=== PATIENT | female | born 1955 | race Caucasian/White ===

== ENCOUNTER 2020-07-25 12:00 | Outpatient (REF) | payer OTHER, SELFPAY ==
[2020-07-25 14:01] LABS: MANUAL DIFF FLAG NO
[2020-07-25 14:06] LABS: Basophils Percent Auto 0.2 % (0-2); Eosinophils Absolute Auto 0.3 X10*3/uL (0.0-0.4); Eosinophils Percent Auto 4.1 % (0-4); Hematocrit 38.2 % (37-47); Hemoglobin 12.4 g/dl (12.0-16.0); Imm Gran Abs Auto 0.02 X10*3/uL (0.00-0.03); Imm Gran Pct Auto 0.3 % (0.0-0.4); Lymphocytes Absolute Auto 1.4 X10*3/uL (1.2-4.9); Lymphocytes Percent Auto 23.5 % (20-40); Mean Corpuscular HGB Conc 32.5 g/dl (31.0-35.0); Mean Corpuscular Hemoglobin 29.1 pg (27.0-33.0); Mean Corpuscular Volume 89.7 fL (80-98); Mean Platelet Volume 9.6 fL (9.4-12.3); Monocytes Absolute Auto 0.4 X10*3/uL (0.1-1.2); Monocytes Percent Auto 6.4 % (2-11); Neutrophils Percent Auto 65.5 % (45-73); Platelet Count 232 X10*3/uL (160-400); Red Blood Count 4.26 X10*6/uL (4.20-5.50); Red Cell Distribution Width 13.3 % (11.0-16.0); White Blood Count 6.1 X10*3/uL (4.8-10.8)
[2020-07-25 14:46] LABS: Alanine Aminotransferase 20 U/L (0-31); Albumin Level 4.3 g/dL (3.5-5.0); Alkaline Phosphatase 60 U/L (39-117); Anion Gap 11 (12-20); Aspartate Amino Transferase 20 U/L (5-31); Bilirubin Total 0.4 mg/dL (0.0-1.0); Blood Urea Nitrogen 18 mg/dL (9-16); Carbon Dioxide 27 mmol/L (22-29); Chloride 107 mmol/L (96-108); Estimated Glomerular Filt Rate > 60; Glucose Random 103 mg/dL (60-115); Potassium 4.1 mmol/l (3.3-5.1); Sodium 141 mmol/L (135-145); Total Protein 6.2 g/dL (6.5-8.0)
== END 2020-07-25 12:01 | disposition home or self-care (01) ==
LOC: HO.HMGCLDS 12:00
PROVIDERS: PCP Internal Medicine; Visit Provider Internal Medicine
DX: E78.5 Hyperlipidemia, unspecified (principal); R10.9 Unspecified abdominal pain; R31.21 Asymptomatic microscopic hematuria; R30.0 Dysuria
CPT/HCPCS: 36415; 80053; 85025; 86141; 87086

== ENCOUNTER 2020-10-30 15:19 | Outpatient (REF) | payer OTHER, SELFPAY ==
--- NOTE | 2020-10-30 | US_ITS ---
EXAMINATION: US RETROPERITONEAL LIMITED (RENAL ONLY) CLINICAL INFORMATION: Renal stones. COMPARISON: Renal ultrasound 11/08/2019 and 12/12/2018. CT abdomen and pelvis 05/20/2018. TECHNIQUE: Real-time imaging of the kidneys. FINDINGS: RIGHT KIDNEY: 10.3 x 4.8 x 4.8 cm (SAG x AP x TRV). The kidney is normal in size, contour, and echogenicity. Renal cortical thickness is normal. No calculi or focal parenchymal lesions. No hydronephrosis. LEFT KIDNEY: 10.3 x 5.1 x 4.6 cm (SAG x AP x TRV). The kidney is normal in size, contour, and echogenicity. Renal cortical thickness is normal. No calculi or focal parenchymal lesions. No hydronephrosis. US/US renal BI IMPRESSION: Unremarkable renal ultrasound.
== END 2020-10-30 15:20 | disposition home or self-care (01) ==
LOC: HO.HMGCX 15:19
PROVIDERS: PCP Internal Medicine; Visit Provider Urology
DX: N20.0 Calculus of kidney (principal)
CPT/HCPCS: 76775

== ENCOUNTER 2020-11-08 07:11 | Outpatient (REF) | payer OTHER, SELFPAY ==
[2020-11-08 07:46] LABS: MANUAL DIFF FLAG NO
[2020-11-08 07:49] LABS: Basophils Percent Auto 0.2 % (0-2); Eosinophils Absolute Auto 0.3 X10*3/uL (0.0-0.4); Eosinophils Percent Auto 5.4 % (0-4); Hematocrit 37.8 % (37-47); Hemoglobin 12.7 g/dl (12.0-16.0); Imm Gran Abs Auto 0.01 X10*3/uL (0.00-0.03); Imm Gran Pct Auto 0.2 % (0.0-0.4); Lymphocytes Absolute Auto 1.5 X10*3/uL (1.2-4.9); Lymphocytes Percent Auto 30.5 % (20-40); Mean Corpuscular HGB Conc 33.6 g/dl (31.0-35.0); Mean Corpuscular Hemoglobin 29.7 pg (27.0-33.0); Mean Corpuscular Volume 88.3 fL (80-98); Mean Platelet Volume 9.1 fL (9.4-12.3); Monocytes Absolute Auto 0.5 X10*3/uL (0.1-1.2); Neutrophils Absolute Auto 2.7 X10*3/uL (2.0-8.3); Neutrophils Percent Auto 54.7 % (45-73); Platelet Count 213 X10*3/uL (160-400); Red Blood Count 4.28 X10*6/uL (4.20-5.50); Red Cell Distribution Width 12.8 % (11.0-16.0)
== END 2020-11-08 07:12 | disposition home or self-care (01) ==
LOC: HO.LAB 07:11
PROVIDERS: PCP Internal Medicine; Visit Provider Internal Medicine
DX: R10.9 Unspecified abdominal pain (principal); E78.2 Mixed hyperlipidemia; E03.9 Hypothyroidism, unspecified
CPT/HCPCS: 36415; 85025

== ENCOUNTER → 2020-11-19 15:57 | Outpatient (BNVA) | payer OTHER, SELFPAY | PROVIDERS: Visit Provider Urology | DX: Z76.89 Persons encountering health services in other specified circumstances (principal) ==

== ENCOUNTER → 2021-01-12 07:56 | Outpatient (REF) | payer OTHER, SELFPAY ==
--- NOTE | 2021-01-12 08:07 | CA_ITS ---
Acquisition Time: 2021-01-12 08:04:41 Total Exercise Time: 00:07:00 Test Indications: Chest Pain Medications: ATORVASTATIN LEVOTHYROXINE Protocol: AMANDA Max HR: 141 BPM 90% of Pred: 155 BPM Max BP: 142/064 mmHG Max Work Load: 8.5 METS Exercise stress test with exercise 7 min of Amanda protocol, with 1/10 left chest discomfort at baseline which did not change with exercise, without arrythmia during exercise, with isolated PVC in recovery, with normotensive response to exercise, without EKG changes meeting criteria for ischemia. Test reviewed with Dr Chandra. Referred By: Kristina Buckley Overread By: ALEX HE
== END ==
LOC: HO.CARD 07:56
PROVIDERS: Visit Provider Internal Medicine
DX: R07.9 Chest pain, unspecified (principal); E78.5 Hyperlipidemia, unspecified
CPT/HCPCS: 93016; 93017; 93018

== ENCOUNTER 2021-05-25 07:15 | Outpatient (REF) | payer OTHER, SELFPAY ==
[2021-05-25 11:21] LABS: MANUAL DIFF FLAG NO
[2021-05-25 11:28] LABS: Glucose Urine UA NEG (NEG); Leukocyte Esterase Urine TRACE (NEG); Nitrite Urine NEG (NEG); PH 5.5 (5.0-8.0); Specific Gravity - Urine 1.025 (1.005-1.025); Urine Blood 2+ (NEG); Urine Ketones NEG (NEG); Urine Protein NEG (NEG-TRACE)
[2021-05-25 11:36] LABS: Appearance Urine HAZY; Color Urine YELLOW
[2021-05-25 11:55] LABS: Eosinophils Absolute Auto 0.2 X10*3/uL (0.0-0.4); Eosinophils Percent Auto 4.5 % (0-4); Hematocrit 38.1 % (37-47); Hemoglobin 12.3 g/dl (12.0-16.0); Imm Gran Abs Auto 0.01 X10*3/uL (0.00-0.03); Imm Gran Pct Auto 0.2 % (0.0-0.4); Lymphocytes Absolute Auto 1.2 X10*3/uL (1.2-4.9); Lymphocytes Percent Auto 30.5 % (20-40); Mean Corpuscular HGB Conc 32.3 g/dl (31.0-35.0); Mean Corpuscular Hemoglobin 28.7 pg (27.0-33.0); Mean Corpuscular Volume 88.8 fL (80-98); Mean Platelet Volume 9.9 fL (9.4-12.3); Monocytes Absolute Auto 0.2 X10*3/uL (0.1-1.2); Neutrophils Absolute Auto 2.4 X10*3/uL (2.0-8.3); Neutrophils Percent Auto 58.8 % (45-73); Platelet Count 198 X10*3/uL (160-400); Red Blood Count 4.29 X10*6/uL (4.20-5.50)
[2021-05-25 11:56] LABS: Alanine Aminotransferase 14 U/L (0-31); Alkaline Phosphatase 58 U/L (39-117); Anion Gap 12 (12-20); Aspartate Amino Transferase 18 U/L (5-31); Bilirubin Total 0.5 mg/dL (0.0-1.0); Blood Urea Nitrogen 18 mg/dL (9-16); Carbon Dioxide 24 mmol/L (22-29); Chloride 110 mmol/L (96-108); Cholesterol 178 mg/dL; Estimated Glomerular Filt Rate 58; Glucose Fasting 114 mg/dL (60-99); HDL Cholesterol 55 mg/dL; LDL Cholesterol Calculated 108 mg/dl; Sodium 142 mmol/L (135-145); Total Protein 5.9 g/dL (6.5-8.0); Triglycerides 76 mg/dL
[2021-05-25 12:10] LABS: Amorphous Sediment Urine 2+ /LPF; Bacteria Urine 2+ /LPF; Renal Epithelial Cells Urine TRACE /LPF; Squamous Epithelial Cell Urine TRACE /LPF
[2021-05-25 12:17] LABS: TSH reflex Free T4 0.33 uIU/mL (0.32-4.0); Vitamin D 25-OH Total 20.9 ng/mL (>30)
== END 2021-05-25 07:16 | disposition home or self-care (01) ==
LOC: HO.HMGCLDS 07:15
PROVIDERS: PCP Internal Medicine; Visit Provider Internal Medicine
DX: Z00.00 Encounter for general adult medical examination without abnormal findings (principal); E03.9 Hypothyroidism, unspecified; E78.5 Hyperlipidemia, unspecified
CPT/HCPCS: 36415; 80053; 80061; 81001; 82306; 84443; 85025

== ENCOUNTER 2021-06-24 12:19 | Outpatient (REF) | payer OTHER, SELFPAY | END 2021-06-24 12:20 | disposition home or self-care (01) | LOC: HO.LNP 12:19 | PROVIDERS: Visit Provider Internal Medicine | DX: Z20.822 Contact with and (suspected) exposure to COVID-19 (principal); J06.9 Acute upper respiratory infection, unspecified | CPT/HCPCS: U0003; U0005 ==

== ENCOUNTER 2021-06-27 10:35 | Outpatient (REF) | payer OTHER, SELFPAY | END 2021-06-27 10:36 | disposition home or self-care (01) | LOC: HO.LNP 10:35 | PROVIDERS: Visit Provider Internal Medicine | DX: A08.4 Viral intestinal infection, unspecified (principal) | CPT/HCPCS: 87045; 87046 ==

== ENCOUNTER 2021-06-30 | Outpatient (REF) | payer OTHER, SELFPAY ==
[2021-07-01 11:44] LABS: Appearance Urine CLEAR; Color Urine YELLOW; Glucose Urine UA NEG (NEG); Leukocyte Esterase Urine NEG (NEG); Nitrite Urine NEG (NEG); Specific Gravity - Urine 1.015 (1.005-1.025); UACC Culture Trigger NO; Urine Blood 1+ (NEG); Urine Ketones NEG (NEG); Urine Protein NEG (NEG-TRACE)
[2021-07-01 12:17] LABS: Squamous Epithelial Cell Urine 1+ /LPF; WBC Urine 0 /HPF (0-4)
== END 2021-06-30 00:01 | disposition home or self-care (01) ==
LOC: HO.LNP
PROVIDERS: Visit Provider Internal Medicine
DX: N39.0 Urinary tract infection, site not specified (principal)
CPT/HCPCS: 81001

== ENCOUNTER 2021-07-14 11:50 | Outpatient (REF) | payer OTHER, SELFPAY ==
[2021-07-14 17:08] LABS: Urine Cytology See Pathology rpt
== END 2021-07-14 11:51 | disposition home or self-care (01) ==
LOC: HO.LNP 11:50
PROVIDERS: PCP Internal Medicine
DX: N39.0 Urinary tract infection, site not specified (principal); R31.21 Asymptomatic microscopic hematuria
CPT/HCPCS: 81002; 88112

== ENCOUNTER → 2021-08-19 13:58 | Outpatient (BNVA) | payer OTHER, SELFPAY | PROVIDERS: PCP Internal Medicine; Referring Provider Internal Medicine; Visit Provider Nurse Practitioner Family ==

== ENCOUNTER 2021-08-20 09:54 | Outpatient (REF) | payer OTHER, SELFPAY ==
[2021-08-20 10:51] LABS: Leukocytes Stool Qualitative NEGATIVE (NEGATIVE)
== END 2021-08-20 09:55 | disposition home or self-care (01) ==
LOC: HO.LNP 09:54
PROVIDERS: PCP Nurse Practitioner Family; Visit Provider Internal Medicine
DX: A08.4 Viral intestinal infection, unspecified (principal); K21.9 Gastro-esophageal reflux disease without esophagitis
CPT/HCPCS: 87338; 89055

== ENCOUNTER 2021-10-05 10:01 | Outpatient (REF) | payer OTHER, SELFPAY | END 2021-10-05 10:02 | disposition home or self-care (01) | LOC: HO.HMGCLDS 10:01 | PROVIDERS: PCP Internal Medicine; Visit Provider Internal Medicine | DX: Z20.822 Contact with and (suspected) exposure to COVID-19 (principal) | CPT/HCPCS: C9803; U0003; U0005 ==

== ENCOUNTER 2021-11-20 06:21 | Day surgery (SDC) | payer OTHER, SELFPAY ==
[2021-11-16 14:42] VITALS: BMI 26.7
--- NOTE | 2021-11-18 13:13 | HO.ANESPROP2 ---
Documented by User: Meron Hayes NP 11/19/21 10:35 HPI - Anesthesia Eval Consult details Narrative: 66yo F for Upper Endoscopy and Colonoscopy [facility] Active Problems Active Problems: All Active Problems (Updated 11/18/21 @ 09:49 by Kristina Buckley MD) Neck pain (Acute) UTI (urinary tract infection) (Acute) Viral gastroenteritis (Acute) Rectal bleed (Acute) Ear pain, left (Acute) Chest pain (Acute) Pruritus ani (Acute) Hypothyroid (Acute) Annual physical exam (Acute) Nephrolithiasis (Acute) Asymptomatic microscopic hematuria (Acute) Normal colonoscopy (Acute) Dysuria (Acute) Hyperlipidemia (Acute) Abdominal pain (Acute) Past Medical History Medical History Abdominal pain Annual physical exam Asymptomatic microscopic hematuria Chest pain Ear pain, left GERD (gastroesophageal reflux disease) Hyperlipidemia Hypothyroid Neck pain Normal colonoscopy Normal Pap smear Pruritus ani Rectal bleed UTI (urinary tract infection) Family History Family History Father No problems noted. Mother COPD (chronic obstructive pulmonary disease) HTN (hypertension) Surgical History Surgical History H/O colonoscopy History of esophagogastroduodenoscopy (EGD) Social History Social History Alcohol intake: current Alcohol intake frequency: a few times a month Patient Tobacco Use Status: Former Tobacco user Tobacco use type: Cigarette e-Cigarette/Vaping Use: Never Used Advance Directives: No (unknown-VM message left) Advance Directives Information Provided: Yes Advance Directives on File: No Meds Allergies Allergy/AdvReac Type Severity Reaction Status Date / Time No Known Allergies Allergy Verified 08/19/21 14:02 [No Known Allergies*] Home Medications Medication Instructions Recorded Confirmed Last Taken Type atorvastatin 20 mg tablet 20 mg PO DAILY 07/25/20 11/16/21 Unknown History lorazepam 0.5 mg tablet 0.5 mg PO BEDTIME PRN 07/25/20 11/16/21 Unknown History Exam Exam Date and Time: November 18, 2021 1313 Height,Weight and Vital Signs: Height 5 ft 9 in Weight 82.1 kg Pertinent Lab Results Pertinent Lab Results: Laboratory Tests 05/25/21 05/25/21 07:19 07:19 WBC 4.0 L Hgb 12.3 Hct 38.1 Plt Count 198 Sodium 142 Potassium 4.0 Chloride 110 H Carbon Dioxide 24 BUN 18 H Creatinine 0.96 Assessment and Plan Assessment Anesthesia Assessment: Chart Reviewed Documented by User: Petra Neal MD 11/20/21 07:42 PMF Past Medical History Medical History Abdominal pain Annual physical exam Asymptomatic microscopic hematuria Chest pain Ear pain, left GERD (gastroesophageal reflux disease) Hyperlipidemia Hypothyroid Neck pain Normal colonoscopy Normal Pap smear Pruritus ani Rectal bleed UTI (urinary tract infection) Family History Family History Father No problems noted. Mother COPD (chronic obstructive pulmonary disease) HTN (hypertension) Surgical History Surgical History H/O colonoscopy History of esophagogastroduodenoscopy (EGD) History of Problems with Anesthesia: No Social History Social History Alcohol intake: current Alcohol intake frequency: a few times a month Patient Tobacco Use Status: Former Tobacco user Tobacco use type: Cigarette e-Cigarette/Vaping Use: Never Used Advance Directives: No (unknown-VM message left) Advance Directives Information Provided: Yes Advance Directives on File: No Meds Allergies Allergy/AdvReac Type Severity Reaction Status Date / Time No Known Allergies Allergy Verified 08/19/21 14:02 [No Known Allergies*] Home Medications Medication Instructions Recorded Confirmed Last Taken Type atorvastatin 20 mg tablet 20 mg PO DAILY 07/25/20 11/16/21 Unknown History lorazepam 0.5 mg tablet 0.5 mg PO BEDTIME PRN 07/25/20 11/16/21 Unknown History Exam Airway Mallampati Class: II TM Dist: >3cm Neck ROM: Full Loose/Missing/Broken Teeth: No Heart: RRR Lungs: CTA Assessment and Plan Assessment Anesthesia Assessment: Anesthesia Plan Discussed Final Anesthetic Review History of Problems with Anesthesia: No NPO: Yes ASA Class: II Final Preanesthetic Review: Meds/Allgs Chart Reviewed, Consent Obtained/Reviewed and Anes Risks/Benef Reviewed Patient Risk: Low Procedure Risk: Intermediate Anesthetic Plan Anesthetic Plan: MAC: Disposition: Standard PACU
[2021-11-20 06:55] VITALS: BP 115/75; PULSE 71; RESP 18; TEMP 36.7; O2SAT 95
[2021-11-20] MEDS: Lactated Ringers 1,000 ML 100 ML IVCONT (07:09)
--- NOTE | 2021-11-20 07:32 | MHC.SHP ---
Pre-Procedural Eval Section A Date of Service: 11/20/21 The patient is an INPATIENT: No The History & Physical has been completed within 30 days and I have reviewed it.: No Section B Chief Complaint: Screening,gerd Details of Present Illness: Colon cancer screening, rectal bleeding, constipation, GERD, abdominal pain Relevant Family History (Specify if Yes): No Relevant Social History: Tobacco Use (Past smoker) Present Medications: see Short Stay Collaborative assessment Medical History: Significant History (Abdominal pain Annual physical exam Asymptomatic microscopic hematuria Chest pain Ear pain, left GERD (gastroesophageal reflux disease) Hyperlipidemia Hypothyroid Normal colonoscopy Normal Pap smear Pruritus ani Rectal bleed UTI (urinary tract infection)) History of Previous Operations: Relevant previous surgery/procedure and date(s) (History of EGD, history of colonoscopy) Allergies: Allergies Allergy/AdvReac Type Severity Reaction Status Date / Time No Known Allergies Allergy Verified 08/19/21 14:02 [No Known Allergies*] Review of Systems Sugical H&P ROS: Negative: Constitution, Cardiovascular and Respiratory and Yes, Specify: Gastrointestinal (heartburn, contipation) Exam Surgical H&P Exam: Normal: Heart, Normal: Lungs, Normal: Extremities and Normal: Abdomen Plan Diagnosis/Plan: Unchanged I have reviewed the history and physical and performed a pertinent physical examination on my patient. No changes have occurred unless specified.
--- NOTE | 2021-11-20 07:33 | PM.OP ---
Brief Operative Note Date of Service: 11/20/21 Pre-op diagnosis: Colon cancer screening, rectal bleeding, constipation, GERD, abdominal pain Post-op diagnosis: other (GERD, gastritis, gastric polyp) Procedure: FLEXIBLE TRANSORAL UPPER GASTROINTESTINAL ENDOSCOPY WITH BIOPSIES AND COLONOSCOPY TILL CECUM WITH BIOPSIES AND SNARE POLYPECTOMY UPPER ENDOSCOPY Consent: Indications for the procedure and potential complications of bleeding, perforation, reaction to medications and missed diagnosis were discussed with the patient and informed consent was obtained. Instrument: Olympus GIF H 190 mid size upper endoscope Monitoring: Vital signs and clinical assessment, continuous EKG monitoring, Pulse oximetry, Carbon Dioxide monitoring and blood pressure monitoring were done throughout the procedure. Procedure: The patient was placed in the left lateral decubitis position and pre-procedure medications were administered and a bite block was placed. The endoscope was inserted into the mouth and advanced under direct vision to the third part of duodenum. A careful inspection was made as the upper endoscope was withdrawn including a retroflexed examination of the proximal stomach; Findings and interventions are described below. Findings: Larynx: Normal Esophagus: GE junction at 36 cms. A single 2 cms healing erosion at GE junction. No Hansen's. Stomach: A 2-3 mm benign appearing polyp in the gastric body - biopsied. Mild gastric erythema. Biopsies were obtained. Grade 2 flap valve on retroflexed examination of the cardia. Duodenum: Normal bulb and descending duodenum Intervention: Biopsies as noted above COLONOSCOPY PROCEDURE NOTE Consent: Indications for the procedure and potential complications of bleeding, perforation, reaction to medications and missed diagnosis were discussed with the patient and informed consent was obtained. Instrument: Olympus PCF H 190 L variable stiffness pediatric colonoscope Monitoring: Vital signs and clinical assessment, intermittent blood pressure monitoring, continuous EKG monitoring, Pulse oximetry and Carbon Dioxide monitoring were done throughout the procedure. Colon withdrawl time was 16 minutes. Procedure: The patient was placed in the left lateral decubitis position and pre-procedure medications were administered. After a digital rectal examination of the ano-rectum, the video colonoscope was inserted into the rectum and advanced through the colon to the cecum. The colonoscope was slowly withdrawn in a retrograde panoramic fashion and the colon mucosa was carefully examined including a retroflexed view of the rectum. Findings and interventions are described below. Procedure Difficulty: Colon was long and tortuous and there was some loop formation - no manuvers were required Findings: Terminal Ileum: Not evaluated Cecum: Normal Ascending Colon: Normal Transverse Colon: Normal Descending Colon: Normal Sigmoid Colon: A 10 mm sessile polyp removed with a cold snare. Small amount of residual polyp removed with a cold bx. Moderate diverticulosis Rectum: Normal Ano-rectum: Large inflamed internal hemorrhoids and perianal skin tags Colon preparation: Excellent Impression and Post Procedure Diagnosis: Endoscopy Findings: ESOPHAGUS: GE junction at 36 cms. A single 2 cms healing erosion at GE junction. No Hansen's STOMACH: Gastritis, Gastric polyp Colonoscopy Findings: One medium sized polyp removed Moderate diverticulosis seen in the sigmoid colon Large inflamed internal hemorrhoids on retroflexed exam and perianal skin tags . Plan: Await pathology results Patient has an appointment on 12/04/21 in the GI Clinic with Tiana Harley FNP-BC . Repeat Colonoscopy interval based on path results - in 3 years if polyps are adenomatous and 10 years if polyps are hyperplastic. Above findings were reviewed with the patient and GERD, Gastric polyps, colon polyps and hemorrhoids handouts were given in the discharge area. Pt reported taking Omeprazole once a day and was advised to increase Omeprazole 20 mg to twice daily (30 min before breakfast and dinner) She was advised to use preparation H every night. If her symptoms persist, she can be prescribed hydrocortisone cream and referred to General surgery for band ligation or hemorrhoidectomy. Surgeon: Satnam Dumont MD Anesthesia: MAC (Dr Neal) Was an Supervisor Files used for this Procedure?: No Supervisor Files: Shayy Patterson Estimated blood loss (mL): 0 Pathology: other (A. gastric antrum bxs, R/O H. pylori B. gastric polyp C. sigmoid colon polyp) Condition: stable Disposition: PACU
--- NOTE | 2021-11-20 07:34 | P.OP_ITS ---
Operative Note Operative Note Date of Service: 11/20/21 Narrative: Pre-op diagnosis: Colon cancer screening, rectal bleeding, constipation, GERD, abdominal pain Post-op diagnosis:?other (GERD, gastritis, gastric polyp) Procedure: FLEXIBLE TRANSORAL UPPER GASTROINTESTINAL ENDOSCOPY WITH BIOPSIES AND COLONOSCOPY TILL CECUM WITH BIOPSIES AND SNARE POLYPECTOMY UPPER ENDOSCOPY Consent:?Indications for the procedure and potential complications of bleeding, perforation, reaction to medications and missed diagnosis were discussed with the patient and informed consent was obtained. Instrument:?Olympus GIF H 190 mid size upper endoscope Monitoring: Vital signs and clinical assessment, continuous EKG monitoring, Pulse oximetry, Carbon Dioxide monitoring and blood pressure monitoring were done throughout the procedure. Procedure:?The patient was placed in the left lateral decubitis position and pre-procedure medications were administered and a bite block was placed. The endoscope was inserted into the mouth and advanced under direct vision to the third part of duodenum. A careful inspection was made as the upper endoscope was withdrawn including a retroflexed examination of the proximal stomach; Findings and interventions are described below. Findings: Larynx:? Normal Esophagus:?GE junction at 36 cms.? A single 2 cms healing erosion at GE junction. No Hansen's. Stomach:?A 2-3 mm benign appearing polyp in the gastric body - biopsied.? Mild gastric erythema. Biopsies were obtained. Grade 2 flap valve on retroflexed examination of the cardia. Duodenum:?Normal bulb and descending duodenum Intervention:?Biopsies as noted above COLONOSCOPY PROCEDURE NOTE Consent:?Indications for the procedure and potential complications of bleeding, perforation, reaction to medications and missed diagnosis were discussed with the patient and informed consent was obtained. Instrument:?Olympus PCF H 190 L variable stiffness pediatric colonoscope Monitoring:?Vital signs and clinical assessment, intermittent blood pressure monitoring, continuous EKG monitoring, Pulse oximetry and Carbon Dioxide monitoring were done throughout the procedure. Colon withdrawl time was 16 minutes. Procedure:?The patient was placed in the left lateral decubitis position and pre-procedure medications were administered. After a digital rectal examination of the ano-rectum, the video colonoscope was inserted into the rectum and advanced through the colon to the cecum. The colonoscope was slowly withdrawn in a retrograde panoramic fashion and the colon mucosa was carefully examined including a retroflexed view of the rectum. Findings and interventions are described below. Procedure Difficulty:??Colon was long and tortuous and there was some loop formation - no manuvers were required Findings: Terminal Ileum: Not evaluated Cecum:? Normal Ascending Colon:??Normal Transverse Colon:??Normal Descending Colon:? Normal Sigmoid Colon:? A 10 mm sessile polyp removed with a cold snare. ? Small amount of residual polyp removed with a cold bx.? Moderate diverticulosis Rectum:??Normal Ano-rectum:??Large inflamed internal hemorrhoids and perianal skin tags Colon preparation: Excellent ? Impression and Post Procedure Diagnosis: Endoscopy Findings: ESOPHAGUS: GE junction at 36 cms.? A single 2 cms healing erosion at GE junction. No Hansen's STOMACH: Gastritis, Gastric polyp Colonoscopy Findings: One medium sized polyp removed Moderate diverticulosis seen in the sigmoid colon Large inflamed internal hemorrhoids on retroflexed exam and perianal skin tags . Plan: Await pathology results Patient has an appointment on 12/04/21 in the GI Clinic with ? Tiana Harley FNP-BC . Repeat Colonoscopy interval based on path results - in 3 years if polyps are adenomatous and 10 years if polyps are hyperplastic. Above findings were reviewed with the patient and GERD, Gastric polyps, colon polyps and hemorrhoids handouts were given in the discharge area. Pt reported taking Omeprazole once a day and was advised to increase Omeprazole 20 mg to twice daily (30 min before breakfast and dinner) She was advised to use preparation H every night.? If her symptoms persist, she can be prescribed hydrocortisone cream and referred to General surgery for band ligation or hemorrhoidectomy. Surgeon: Satnam Dumont MD Anesthesia:?MAC (Dr Neal) Was an Senior Fire Protection Engineer used for this Procedure?:?No Senior Fire Protection Engineer:?Shayy Patterson Estimated blood loss (mL):?0 Pathology:?other (A. gastric antrum bxs, R/O H. pylori? B. gastric polyp? C. sigmoid colon polyp) Condition:?stable Disposition:?PACU
[2021-11-20 08:38] VITALS: BP 121/70; PULSE 65; RESP 18; TEMP 36.3; O2SAT 100
[2021-11-20 08:53] VITALS: BP 120/81; PULSE 60; RESP 18; TEMP 36.3; O2SAT 98
== END 2021-11-20 09:20 | disposition home or self-care (01) ==
PROVIDERS: PCP Internal Medicine; Visit Provider Internal Medicine Gastroenterology
PROC: (CPT 45385; principal; 2021-11-20 07:30)
DX: Z12.11 Encounter for screening for malignant neoplasm of colon (principal); K63.5 Polyp of colon; K57.30 Diverticulosis of large intestine without perforation or abscess without bleeding; K64.8 Other hemorrhoids; K64.4 Residual hemorrhoidal skin tags; K59.00 Constipation, unspecified; K21.9 Gastro-esophageal reflux disease without esophagitis; K29.50 Unspecified chronic gastritis without bleeding; K31.7 Polyp of stomach and duodenum; Z79.899 Other long term (current) drug therapy
CPT/HCPCS: 45385; 45380; 43239; 88305; 88342

== ENCOUNTER 2021-11-26 07:36 | Outpatient (REF) | payer OTHER, SELFPAY ==
[2021-11-26 11:31] LABS: Hematocrit 37.7 % (37.0-47.0); Hemoglobin 12.3 g/dl (12.0-16.0); Mean Corpuscular HGB Conc 32.6 g/dl (31.0-35.0); Mean Corpuscular Hemoglobin 29.1 pg (27.0-33.0); Mean Corpuscular Volume 89.3 fL (80.0-98.0); Mean Platelet Volume 10.1 fL (9.4-12.3); Platelet Count 214 X10*3/uL (160-400); Red Blood Count 4.22 X10*6/uL (4.20-5.50); White Blood Count 4.4 X10*3/uL (4.8-10.8)
[2021-11-26 11:42] LABS: Estimated Average Glucose 108 mg/dL; Hemoglobin A1c % 5.4 %
[2021-11-26 12:01] LABS: Alanine Aminotransferase 15 U/L (0-31); Albumin Level 3.9 g/dL (3.5-5.0); Alkaline Phosphatase 64 U/L (39-117); Anion Gap 8 (12-20); Aspartate Amino Transferase 17 U/L (5-31); Bilirubin Total 0.5 mg/dL (0.0-1.0); Blood Urea Nitrogen 19 mg/dL (9-16); Calcium 9.1 mg/dL (8.4-10.2); Carbon Dioxide 29 mmol/L (22-29); Chloride 110 mmol/L (96-108); Estimated Glomerular Filt Rate > 60; Glucose Fasting 92 mg/dL (60-99); Potassium 4.1 mmol/L (3.3-5.1); Sodium 143 mmol/L (135-145); Total Protein 5.9 g/dL (6.5-8.0)
== END 2021-11-26 07:37 | disposition home or self-care (01) ==
LOC: HO.HMGCLDS 07:36
PROVIDERS: Visit Provider Internal Medicine
DX: Z00.00 Encounter for general adult medical examination without abnormal findings (principal); E03.9 Hypothyroidism, unspecified; E78.5 Hyperlipidemia, unspecified
CPT/HCPCS: 36415; 80053; 83036; 85027

== ENCOUNTER → 2021-12-01 13:23 | Outpatient (BNVA) | payer OTHER, SELFPAY | PROVIDERS: PCP Internal Medicine; Referring Provider Internal Medicine; Visit Provider Nurse Practitioner Family ==

== ENCOUNTER → 2022-03-01 12:50 | Outpatient (BNVA) | payer OTHER, SELFPAY | PROVIDERS: PCP Internal Medicine; Referring Provider Internal Medicine; Visit Provider Nurse Practitioner Family | DX: K21.9 Gastro-esophageal reflux disease without esophagitis (principal) ==

== ENCOUNTER 2023-01-12 09:12 | Outpatient (REF) | payer OTHER, SELFPAY ==
[2023-01-12 11:45] LABS: Appearance Urine Clear; Color Urine Yellow; Glucose Urine UA Negative (Negative); Leukocyte Esterase Urine Trace (Negative); Nitrite Urine Negative (Negative); UMIC TRIGGER UA YES; Urine Blood Moderate (2+) (Negative); Urine Ketones Negative (Negative); Urine Protein Negative (Neg-Trace)
[2023-01-12 11:52] LABS: MANUAL DIFF FLAG NO
[2023-01-12 12:00] LABS: Bacteria Urine None Seen (None Seen); Basophils Percent Auto 0.4 % (0-2); Eosinophils Absolute Auto 0.4 X10*3/uL (0.0-0.4); Eosinophils Percent Auto 8.1 % (0-4); Hematocrit 37.5 % (37.0-47.0); Hemoglobin 12.5 g/dl (12.0-16.0); Hyaline Casts Urine 0-2 /LPF (0-2); Imm Gran Abs Auto 0.02 X10*3/uL (0.00-0.03); Imm Gran Pct Auto 0.4 % (0.0-0.4); Lymphocytes Absolute Auto 1.4 X10*3/uL (1.2-4.9); Lymphocytes Percent Auto 30.8 % (20-40); Mean Corpuscular HGB Conc 33.3 g/dl (31.0-35.0); Mean Corpuscular Hemoglobin 29.6 pg (27.0-33.0); Mean Corpuscular Volume 88.9 fL (80.0-98.0); Mean Platelet Volume 9.7 fL (9.4-12.3); Monocytes Absolute Auto 0.4 X10*3/uL (0.1-1.2); Monocytes Percent Auto 8.5 % (2-11); Neutrophils Absolute Auto 2.3 x10*3/uL (2.0-8.3); Neutrophils Percent Auto 51.8 % (45-73); Platelet Count 221 X10*3/uL (160-400); RBC Urine 0-2 /HPF (0-2); Red Blood Count 4.22 X10*6/uL (4.20-5.50); Red Cell Distribution Width 13.4 % (11.0-16.0); Squamous Epithelial Cell Urine 0-2 /HPF (0-2); WBC Urine 0-5 /HPF (0-5); White Blood Count 4.5 X10*3/uL (4.8-10.8)
[2023-01-12 12:55] LABS: Alanine Aminotransferase 22 U/L (0-31); Albumin Level 3.8 g/dL (3.5-5.0); Alkaline Phosphatase 61 U/L (39-117); Anion Gap 10 (12-20); Aspartate Amino Transferase 21 U/L (5-31); Bilirubin Total 0.5 mg/dL (0.0-1.0); Blood Urea Nitrogen 20 mg/dL (9-16); Calcium 8.5 mg/dL (8.4-10.2); Carbon Dioxide 26 mmol/L (22-29); Chloride 111 mmol/L (96-108); Cholesterol 211 mg/dL; Estimated Glomerular Filt Rate > 60; Glucose Fasting 84 mg/dL (60-99); HDL Cholesterol 51 mg/dL; LDL Cholesterol Calculated 144 mg/dl; Potassium 4.2 mmol/L (3.3-5.1); Sodium 143 mmol/L (135-145); Total Protein 5.7 g/dL (6.5-8.0); Triglycerides 83 mg/dL
[2023-01-12 13:20] LABS: TSH reflex Free T4 0.31 uIU/mL (0.32-4.0); Vitamin D 25-OH Total 16.5 ng/mL (>30)
[2023-01-12 14:12] LABS: Free T4 (Free Thyroxine) 1.32 ng/dL (0.71-1.85)
== END 2023-01-12 09:13 | disposition home or self-care (01) ==
LOC: HO.HMGCLDS 09:12
PROVIDERS: PCP Internal Medicine; Visit Provider Internal Medicine
DX: Z00.00 Encounter for general adult medical examination without abnormal findings (principal); E03.9 Hypothyroidism, unspecified; E78.5 Hyperlipidemia, unspecified
CPT/HCPCS: 36415; 80053; 80061; 81001; 82306; 84439; 84443; 85025

== ENCOUNTER 2023-03-15 14:55 | Outpatient (REF) | payer MEDICARE, SELFPAY ==
--- NOTE | ~2023-03-15 | MM_ITS ---
EXAMINATION: BONE DENSITOMETRY CLINICAL INDICATION: Asymptomatic menopausal state. COMPARISON: None (current study represents initial baseline exam). TECHNIQUE: Using a Opbeat DXA System (software version: 13.1) manufactured by [employer], dual-energy x-ray absorptiometry was performed of the lumbar spine and left hip. The images are of good technical quality. Summary results are attached. FINDINGS: AP SPINE L1-L4: BMD 1.327 g/cm2, Z-score 2.4, T-score 1.2, normal. LEFT FEMUR, NECK: BMD 0.960 g/cm2, Z-score 0.7, T-score -0.6, normal. LEFT FEMUR, TOTAL: BMD 1.140 g/cm2, Z-score 2.0, T-score 1.0, normal. IDENTIFIED RISK FACTORS: Menopause. HISTORY OF FRACTURE: None listed. MEDICATIONS: Vitamin D. MM/XR DEXA axial skeleton IMPRESSION: 1. DIAGNOSIS: Normal bone density based on the lowest T-score value of -0.6 in the femoral neck applying World Health Organization criteria. 2. 10-YEAR FRACTURE RISK PREDICTION, FRAX: According to the guidelines, FRAX calculation should only be performed on patients in the osteopenia bone density category. Therefore, FRAX was not performed on this patient. 3. Treatment Recommendations: NOF guidelines recommend consideration for treatment in postmenopausal women and men age 50 and older presenting with the following: -A hip or vertebral (clinical or morphometric) fracture. -T-score less than or equal to -2.5 at the femoral neck or spine after appropriate evaluation to exclude secondary causes. -Low bone mass at the hip or spine and a 10-year fracture probability by FRAX of greater than or equal to 3% for hip fracture or greater than or equal to 20% for major osteoporotic fracture based on the [place] adapted WHO algorithm. 4. Other Recommendations: All treatment decisions require clinical judgment and consideration of individual patient factors, including patient preferences, comorbidities, previous drug use, risk factors not captured in the FRAX model (e.g. frailty, falls, vitamin D deficiency, increased bone turnover, interval significant decline in bone density) and possible under or overestimation of fracture risk by FRAX. FUTURE SCAN RECOMMENDATION: People with diagnosed cases of osteoporosis or at high risk for fracture should have regular bone mineral density tests. For patients eligible for Medicare, routine testing is allowed once every 2 years. The testing frequency can be increased to one year for patients who have rapidly progressing disease, those who are receiving or discontinuing medical therapy to restore bone mass, or have additional risk factors.
== END 2023-03-15 14:56 | disposition home or self-care (01) ==
LOC: HO.MAMMO 14:55
PROVIDERS: PCP Internal Medicine; Visit Provider Internal Medicine
DX: Z13.820 Encounter for screening for osteoporosis (principal); Z78.0 Asymptomatic menopausal state
CPT/HCPCS: 77080

== ENCOUNTER 2023-05-24 06:20 | Outpatient (REF) | payer MEDICARE, SELFPAY ==
[2023-05-24 11:22] LABS: MANUAL DIFF FLAG NO
[2023-05-24 11:31] LABS: Basophils Percent Auto 0.4 % (0-2); Eosinophils Absolute Auto 0.2 X10*3/uL (0.0-0.4); Eosinophils Percent Auto 4.8 % (0-4); Hematocrit 38.9 % (37.0-47.0); Hemoglobin 12.7 g/dl (12.0-16.0); Lymphocytes Absolute Auto 1.2 X10*3/uL (1.2-4.9); Lymphocytes Percent Auto 24.5 % (20-40); Mean Corpuscular HGB Conc 32.6 g/dl (31.0-35.0); Mean Corpuscular Hemoglobin 29.5 pg (27.0-33.0); Mean Corpuscular Volume 90.3 fL (80.0-98.0); Mean Platelet Volume 10.1 fL (9.4-12.3); Monocytes Absolute Auto 0.4 X10*3/uL (0.1-1.2); Monocytes Percent Auto 8.6 % (2-11); Neutrophils Absolute Auto 2.9 x10*3/uL (2.0-8.3); Neutrophils Percent Auto 61.7 % (45-73); Platelet Count 207 X10*3/uL (160-400); Red Blood Count 4.31 X10*6/uL (4.20-5.50); Red Cell Distribution Width 13.1 % (11.0-16.0); White Blood Count 4.8 X10*3/uL (4.8-10.8)
[2023-05-24 12:39] LABS: Alanine Aminotransferase 18 U/L (0-31); Albumin Level 3.9 g/dL (3.5-5.0); Alkaline Phosphatase 52 U/L (39-117); Anion Gap 14 (12-20); Aspartate Amino Transferase 18 U/L (5-31); Bilirubin Total 0.4 mg/dL (0.0-1.0); Blood Urea Nitrogen 21 mg/dL (9-16); Calcium 9.1 mg/dL (8.4-10.2); Carbon Dioxide 22 mmol/L (22-29); Chloride 111 mmol/L (96-108); Estimated Glomerular Filt Rate > 60; Glucose Fasting 73 mg/dL (60-99); Potassium 3.8 mmol/L (3.3-5.1); Sodium 143 mmol/L (135-145); Total Protein 6.3 g/dL (6.5-8.0)
[2023-05-24 12:57] LABS: TSH reflex Free T4 0.47 uIU/mL (0.32-4.0)
[2023-05-24 14:28] LABS: Leukocytes Stool Qualitative NEGATIVE (NEGATIVE)
[2023-05-25 09:15] LABS: Adenovirus F 40/41 Not Detected (Not Detect.); Astrovirus Not Detected (Not Detect.); Campylobacter Not Detected (Not Detect.); Cryptosporidium Not Detected (Not Detect.); Cyclospora cayetanensis Not Detected (Not Detect.); E. coli EAEC Not Detected (Not Detect.); E. coli EPEC Detected (Not Detect.); E. coli ETEC Not Detected (Not Detect.); E. coli STEC Not Detected (Not Detect.); Entamoeba histolytica Not Detected (Not Detect.); Giardia lamblia Not Detected (Not Detect.); Norovirus GI/GII Not Detected (Not Detect.); Plesiomonas shigelloides Not Detected (Not Detect.); Rotavirus A Not Detected (Not Detect.); Salmonella Not Detected (Not Detect.); Sapovirus Not Detected (Not Detect.); Shigella sp./EIEC Not Detected (Not Detect.); Vibrio Not Detected (Not Detect.); Vibrio Cholerae Not Detected (Not Detect.); Yersinia enterocolitica Not Detected (Not Detect.)
== END 2023-05-24 06:21 | disposition home or self-care (01) ==
LOC: HO.HMGCLDS 06:20
PROVIDERS: PCP Internal Medicine; Visit Provider Internal Medicine
DX: R19.7 Diarrhea, unspecified (principal); K21.9 Gastro-esophageal reflux disease without esophagitis
CPT/HCPCS: 80053; 84443; 85025; 87338; 87507; 89055

== ENCOUNTER 2023-07-13 07:05 | Outpatient (REF) | payer MEDICARE, SELFPAY ==
[2023-07-13 13:10] LABS: Cholesterol 195 mg/dL (<200); HDL Cholesterol 57 mg/dL (>40); LDL Cholesterol Calculated 120 mg/dL (<100); Triglycerides 94 mg/dL (<150)
[2023-07-13 13:15] LABS: TSH reflex Free T4 0.43 uIU/mL (0.32-4.0); Vitamin D 25-OH Total 51.7 ng/mL (>30)
== END 2023-07-13 07:06 | disposition home or self-care (01) ==
LOC: HO.HMGCLDS 07:05
PROVIDERS: PCP Internal Medicine; Visit Provider Internal Medicine
DX: E03.9 Hypothyroidism, unspecified (principal); E55.9 Vitamin D deficiency, unspecified; E78.5 Hyperlipidemia, unspecified
CPT/HCPCS: 36415; 80061; 82306; 84443

== ENCOUNTER 2023-07-19 10:52 | Outpatient (AMB) | payer MEDICARE, SELFPAY ==
[2023-07-19 10:54] VITALS: BP 114/66; PULSE 62; O2SAT 96; BMI 25.4
--- NOTE | 2023-07-19 10:54 | MHC.PC.OV ---
Vital Signs 07/19/23 10:54 Height 5 ft 8 in Weight 167 lb BMI 25.4 BP 114/66 Blood Pressure Location Rt brachial Position Sitting Pulse 62 Pulse Source Pulse Oximeter Pulse Oximetry (%) 96 Oxygen Delivery Method Room Air Intake Visit Reasons: 6 month follow up Hyperlipidemia Intake Note: Pt is here today for 6 months follow up visit. Allergies atorvastatin Adverse Reaction (Intermediate, Verified 07/19/23 10:56) joint aches Medication List - Last Reconciled 07/19/23 by Kristina Buckley MD cholecalciferol (vitamin D3) 50 mcg PO DAILY docusate sodium 100 mg PO BEDTIME famotidine (Pepcid) 20 mg PO BEDTIME hydrocortisone 2.5% (Proctosol HC) 1 appl [place] BID-QID PRN levocetirizine 5 mg PO DAILY levothyroxine 88 mcg PO DAILY lorazepam 0.5 mg PO BEDTIME PRN methylcellulose (laxative) (Citrucel) 500 mg PO DAILY omeprazole 20 mg PO BID rosuvastatin (Crestor) 5 mg PO DAILY sucralfate (Carafate) 10 mL PO BID PRN 30 days Tobacco use date assessed: 07/19/23 Fall risk assessment: No Falls in past year Last assessed Fall Risk: 07/19/23 Dental Screening Dental Screen Date: 07/19/23 Did you have a dental visit in the last 12 months?: Yes Did you have a dental problem in the last 6 months where you did not have access to dental care?: No Was dental information given to patient?: Patient has dentist HPI 6 month follow up Hyperlipidemia HPI Details Pt presents for f/u hyperlipidemia and hypothyroidism, stable on current medications. PFSH Medical History Otalgia of left ear Sore throat Internal hemorrhoid Tubular adenoma Hx of mammogram Neck pain Chest pain Pruritus ani Annual physical exam Normal Pap smear Asymptomatic microscopic hematuria Hyperlipidemia Hypothyroid GERD (gastroesophageal reflux disease) Surgical History H/O colonoscopy History of esophagogastroduodenoscopy (EGD) Family History Father No problems noted. Mother COPD (chronic obstructive pulmonary disease) HTN (hypertension) Social History Housing: House Alcohol intake: current Alcohol intake frequency: a few times a month Patient Tobacco Use Status: Former Tobacco user Tobacco use type: Cigarette e-Cigarette/Vaping Use: Never Used Current occupational status: employed Cognitive needs: No Hearing needs: No Vision needs: Yes Questionnaire Thrive Questionnaire Date Thrive assessed: 01/20/23 CRISTINA-7 AMB Questionnaire CRISTINA-7 Date CRISTINA - 7 assessed: 01/20/23 Source: Developed by Drs. Brandon Lanza, Mary Baig, Sergo Aquino and colleagues, with an educational [place] from [employer]. Review of Systems Const All systems reviewed & are unremarkable except as noted in HPI and below Reports no additional complaints Eyes Reports no additional complaints ENT Reports no additional complaints Card Reports no additional complaints Resp Reports no additional complaints GI Reports no additional complaints Reports no additional complaints Physical exam (Primary Care) Vital Signs: Last Vital Signs Pulse 62 07/19/23 10:54 BP 114/66 07/19/23 10:54 Pulse Ox 96 07/19/23 10:54 Oxygen Delivery Method Room Air 07/19/23 10:54 BMI result Body Mass Index 25.4 Tobacco/Smoking Status: Tobacco use Status Tobacco use date assessed 07/19/23 07/19/23 11:01 Patient Tobacco Use Status Former Tobacco user 07/19/23 11:01 Tobacco use type Cigarette 07/19/23 11:01 e-Cigarette/Vaping Use Never Used 07/19/23 11:01 Thrive Assessment: Date of Thrive Assessment Date Thrive assessed 01/20/23 07/19/23 11:01 Const General: no acute distress Neck Neck: Yes no lymphadenopathy and Yes supple Resp Effort & Inspection: normal respiratory effort Auscultation: clear to auscultation bilaterally Cardio Rhythm: regular rhythm Heart sounds: S1 normal heart sound present and S2 normal heart sound present GI Inspection: Yes normal to inspection Palpation (GI): Soft to palpation Auscultation: normal bowel sounds Assessment and Plan Assessment & Plan (1) Hypothyroid: Code(s): E03.9 - Hypothyroidism, unspecified Plan: Continue levothyroxine (2) Hyperlipidemia: Comment: Continue statin Code(s): E78.5 - Hyperlipidemia, unspecified Plan: Continue Crestor, return for physical in January with a fasting labs before Orders: Orders Comprehensive [place]. Panel Fast 7 Months E03.9 - Hypothyroidism, unspecified, E78.5 - Hyperlipidemia, unspecified Lipid Panel 7 Months E03.9 - Hypothyroidism, unspecified, E78.5 - Hyperlipidemia, unspecified TSH reflex Free T4 7 Months E03.9 - Hypothyroidism, unspecified, E78.5 - Hyperlipidemia, unspecified Complete Blood Count Auto Diff 7 Months E03.9 - Hypothyroidism, unspecified, E78.5 - Hyperlipidemia, unspecified Medications: Refilled omeprazole 20 mg PO BID 90 caps 3RF Discontinued sucralfate (Carafate) Discontinued Reason: Doctor's Order 10 mL PO BID 30 days PRN 600 mL 0RF stomch pain famotidine (Pepcid) Discontinued Reason: Doctor's Order 20 mg PO BEDTIME 90 tabs 2RF K21.9 - Gastro-esophageal reflux disease without esophagitis Coding Level of Care Code Est Pt Level 3 (21416) Diagnoses Hypothyroid E03. Hyperlipidemia E78.5
== END 2023-07-19 11:39 | disposition home or self-care (01) ==
PROVIDERS: Visit Provider Internal Medicine
DX: E03.9 Hypothyroidism, unspecified (principal); E78.5 Hyperlipidemia, unspecified
CPT/HCPCS: 99213

== ENCOUNTER 2023-11-11 12:11 | Outpatient (AMB) | payer MEDICARE, SELFPAY ==
[2023-11-11 12:19] VITALS: BP 110/70; PULSE 74; O2SAT 99; BMI 25.6
--- NOTE | 2023-11-11 12:19 | MHC.PC.OV ---
Vital Signs 11/11/23 12:19 Height 5 ft 8 in Weight 168 lb 8 oz BMI 25.6 BP 110/70 Blood Pressure Location Rt brachial Position Sitting Pulse 74 Pulse Source Pulse Oximeter Pulse Oximetry (%) 99 Oxygen Delivery Method Room Air Intake Visit Reasons: Dizziness on and off Intake Note: pt is here for dizziness off and on since pt says she has nausea as well no diarrhea but she goes more often then normal Allergies atorvastatin Adverse Reaction (Intermediate, Verified 11/11/23 12:22) joint aches Medication List - Last Reconciled 11/11/23 by Kristina Buckley MD cholecalciferol (vitamin D3) 50 mcg PO DAILY levothyroxine 88 mcg PO DAILY lorazepam 0.5 mg PO BEDTIME PRN omeprazole 20 mg PO BID rosuvastatin (Crestor) 5 mg PO DAILY Tobacco use date assessed: 11/11/23 Fall risk assessment: No Falls in past year Last assessed Fall Risk: 11/11/23 Dental Screening Dental Screen Date: 11/11/23 Did you have a dental visit in the last 12 months?: Yes Did you have a dental problem in the last 6 months where you did not have access to dental care?: No Was dental information given to patient?: Patient has dentist HPI Dizziness on and off HPI Details Pt had an episode of positional vertigo 2 days ago with nausea, no vomiting. Patient is feeling better but still has slight headache. She denies change in balance, weakness or numbness in extremities,fever chills abdominal pain, change in bowel habits. PFSH Medical History Otalgia of left ear Sore throat Internal hemorrhoid Tubular adenoma Hx of mammogram Neck pain Chest pain Pruritus ani Annual physical exam Normal Pap smear Asymptomatic microscopic hematuria Hyperlipidemia Hypothyroid GERD (gastroesophageal reflux disease) Surgical History H/O colonoscopy History of esophagogastroduodenoscopy (EGD) Family History Father No problems noted. Mother COPD (chronic obstructive pulmonary disease) HTN (hypertension) Social History Housing: House Alcohol intake: current Alcohol intake frequency: a few times a month Patient Tobacco Use Status: Former Tobacco user Tobacco use type: Cigarette e-Cigarette/Vaping Use: Never Used Current occupational status: employed Cognitive needs: No Hearing needs: No Vision needs: Yes Questionnaire PHQ-9 Over the last 2 weeks, how often have you been bothered by any of the following problems? 1. Little interest or pleasure in doing things: not at all 2. Feeling down, depressed, or hopeless: not at all 3. Trouble falling or staying asleep, or sleeping too much: not at all 4. Feeling tired or having little energy: not at all 5. Poor appetite or overeating: not at all 6. Feeling bad about yourself - or that you are a failure or have let yourself or your family down: not at all 7. Trouble concentrating on things, such as reading the newspaper or watching television: not at all 8. Moving or speaking so slowly that other people could have noticed. Or the opposite - being so fidgety or restless that you have been moving around a lot more than usual: not at all 9. Thoughts that you would be better off or of hurting yourself in some way: not at all Total score: 0 Depression Screening Interpretation: Negative Depression Screening Done: Yes Source: Developed by Drs. Brandon Lanza, Mary Baig, Sergo Aquino and colleagues, with an educational orlando from [employer]. Thrive Questionnaire Date Thrive assessed: 11/11/23 I am a: Patient What is your living situation today?: I have a steady place to live Within the past 12 months, did the food you bought not last and you didn't have the money to get more?: Never true Within the past 12 months, did you worry whether your food would run out before you got money to buy more?: Never true Do you have trouble paying for medicines?: No Do you have trouble getting transportation to medical appointments?: No Do you have trouble paying your heating and electricity bill?: No Do you have trouble taking care of your child, family member or friend?: No Do you have trouble with day-to-day activities such as bathing, preparing meals, shopping, managing finances, etc.?: No Are you currently unemployed and looking for a job?: No Are you interested in more education?: No Please select the resources that you would like help with: None Currently or been in a relationship where the following occur: no concerns reported THRIVE Score: 0 CRISTINA-7 AMB Questionnaire CRISTINA-7 Date CRISTINA - 7 assessed: 11/11/23 Feeling nervous, anxious, or on edge: 0 = Not at all Not being able to stop or control worryin = Not at all Worrying too much about different things: 0 = Not at all Trouble relaxin = Not at all Being so restless that it is hard to sit still: 0 = Not at all Becoming easily annoyed or irritable: 0 = Not at all Feeling afraid as if something awful might happen: 0 = Not at all Total CRISTINA-7 score (0-4 normal; 5-9 mild; 10-14 moderate; 15-21 severe): 0 Source: Developed by Drs. Brandon Lanza, Mary Baig, Sergo Aquino and colleagues, with an educational orlando from [employer]. Review of Systems Const All systems reviewed & are unremarkable except as noted in HPI and below Reports no additional complaints Eyes Reports no additional complaints ENT Reports no additional complaints Card Reports no additional complaints Resp Reports no additional complaints GI Reports no additional complaints Reports no additional complaints Physical exam (Primary Care) Vital Signs: Last Vital Signs Pulse 74 11/11/23 12:19 BP 110/70 11/11/23 12:19 Pulse Ox 99 11/11/23 12:19 Oxygen Delivery Method Room Air 11/11/23 12:19 BMI result Body Mass Index 25.6 Tobacco/Smoking Status: Tobacco use Status Tobacco use date assessed 11/11/23 11/11/23 12:24 Patient Tobacco Use Status Former Tobacco user 11/11/23 12:24 Tobacco use type Cigarette 11/11/23 12:24 e-Cigarette/Vaping Use Never Used 11/11/23 12:24 Depression Screening Interpretation: Negative Thrive Assessment: Date of Thrive Assessment Date Thrive assessed 01/20/23 11/11/23 12:24 Currently or been in a relationship where the following occur: no concerns reported Const General: no acute distress HENMT Head: Yes normal to inspection Ears: hearing grossly normal bilaterally General nose exam: Normal external nose present Face and sinus: Yes normal facial exam Mouth: Normal oral and palatal mucosa present Throat: Yes posterior oropharynx normal Eyes General: appearance normal, both eyes and all related structures Neck Neck: Yes no lymphadenopathy and Yes supple Resp Effort & Inspection: normal respiratory effort Auscultation: clear to auscultation bilaterally Cardio Rhythm: regular rhythm Heart sounds: S1 normal heart sound present and S2 normal heart sound present GI Inspection: Yes normal to inspection Palpation (GI): Soft to palpation Percussion: Yes normal to percussion Auscultation: normal bowel sounds Neuro Cranial nerves: Yes CN's II-XII intact bilaterally Gait exam (Neuro): Normal gait present Romberg Test: Negative Assessment and Plan Assessment & Plan (1) Benign positional vertigo: Code(s): H81.10 - Benign paroxysmal vertigo, unspecified ear Plan: Resolved Coding Level of Care Code Est Pt Level 3 (71509) Diagnoses Benign positional vertigo H81.10
== END 2023-11-11 13:24 | disposition home or self-care (01) ==
PROVIDERS: PCP Internal Medicine; Visit Provider Internal Medicine
DX: H81.10 Benign paroxysmal vertigo, unspecified ear (principal)
CPT/HCPCS: 99213

== ENCOUNTER 2024-01-17 07:05 | Outpatient (REF) | payer MEDICARE, SELFPAY ==
[2024-01-17 11:39] LABS: MANUAL DIFF FLAG NO
[2024-01-17 11:46] LABS: Basophils Percent Auto 0.2 % (0-2); Eosinophils Absolute Auto 0.3 X10*3/uL (0.0-0.4); Eosinophils Percent Auto 6.9 % (0-4); Hematocrit 39.1 % (37.0-47.0); Imm Gran Abs Auto 0.01 X10*3/uL (0.00-0.03); Imm Gran Pct Auto 0.2 % (0.0-0.4); Lymphocytes Absolute Auto 1.3 X10*3/uL (1.2-4.9); Lymphocytes Percent Auto 28.7 % (20-40); Mean Corpuscular HGB Conc 33.2 g/dl (31.0-35.0); Mean Corpuscular Hemoglobin 30.1 pg (27.0-33.0); Mean Corpuscular Volume 90.5 fL (80.0-98.0); Mean Platelet Volume 9.7 fL (9.4-12.3); Monocytes Absolute Auto 0.3 X10*3/uL (0.1-1.2); Monocytes Percent Auto 6.2 % (2-11); Neutrophils Absolute Auto 2.6 x10*3/uL (2.0-8.3); Neutrophils Percent Auto 57.8 % (45-73); Platelet Count 197 X10*3/uL (160-400); Red Blood Count 4.32 X10*6/uL (4.20-5.50); Red Cell Distribution Width 13.2 % (11.0-16.0); White Blood Count 4.5 X10*3/uL (4.8-10.8)
[2024-01-17 13:04] LABS: Alanine Aminotransferase 17 U/L (0-31); Albumin Level 3.9 g/dL (3.5-5.0); Alkaline Phosphatase 50 U/L (39-117); Anion Gap 11 (12-20); Aspartate Amino Transferase 21 U/L (5-31); Bilirubin Total 0.4 mg/dL (0.0-1.0); Blood Urea Nitrogen 19 mg/dL (9-16); Calcium 9.1 mg/dL (8.4-10.2); Carbon Dioxide 28 mmol/L (22-29); Chloride 109 mmol/L (96-108); Cholesterol 172 mg/dL (<200); Estimated Glomerular Filt Rate 59; Glucose Fasting 103 mg/dL (60-99); HDL Cholesterol 59 mg/dL (>40); LDL Cholesterol Calculated 98 mg/dL (<100); Potassium 3.9 mmol/L (3.3-5.1); Sodium 144 mmol/L (135-145); Triglycerides 76 mg/dL (<150)
[2024-01-17 13:25] LABS: TSH reflex Free T4 0.21 uIU/mL (0.32-4.0)
[2024-01-17 14:06] LABS: Free T4 (Free Thyroxine) 1.15 ng/dL (0.71-1.85)
== END 2024-01-17 07:06 | disposition home or self-care (01) ==
LOC: HO.HMGCLDS 07:05
PROVIDERS: PCP Internal Medicine; Visit Provider Internal Medicine
DX: E03.9 Hypothyroidism, unspecified (principal); E78.5 Hyperlipidemia, unspecified
CPT/HCPCS: 36415; 80053; 80061; 84439; 84443; 85025

== ENCOUNTER 2024-01-23 12:51 | Outpatient (AMB) | payer MEDICARE, SELFPAY ==
[2024-01-23 12:54] VITALS: BP 130/78; PULSE 64; O2SAT 99; BMI 25.8
--- NOTE | 2024-01-23 12:54 | A.OFFPC_ITS ---
Vital Signs 01/23/24 12:54 Height 5 ft 8 in Weight 170 lb BMI 25.8 BP 130/78 Blood Pressure Location Lt brachial Position Sitting Pulse 64 Pulse Source Pulse Oximeter Pulse Oximetry (%) 99 Oxygen Delivery Method Room Air Intake Visit Reasons: Annual PE Intake Note: Pt is here today for her PE Allergies atorvastatin Adverse Reaction (Intermediate, Verified 01/23/24 12:56) joint aches Medication List - Last Reconciled 01/23/24 by Kristina Buckley MD cholecalciferol (vitamin D3) 50 mcg PO DAILY levothyroxine 88 mcg PO DAILY lorazepam 0.5 mg PO BEDTIME PRN omeprazole 20 mg PO BID rosuvastatin (Crestor) 5 mg PO DAILY Tobacco use date assessed: 01/23/24 Fall risk assessment: 1 Fall in past year Last assessed Fall Risk: 01/23/24 Dental Screening Dental Screen Date: 01/23/24 Did you have a dental visit in the last 12 months?: Yes Did you have a dental problem in the last 6 months where you did not have access to dental care?: No Was dental information given to patient?: Patient has dentist HPI Annual PE HPI Details Patient presents for physical. She tripped and fell last night hitting the left side of her face. Patient denies loss of consciousness. headache nausea vomiting change in vision. [facility] Medical History Otalgia of left ear Sore throat Internal hemorrhoid Tubular adenoma Hx of mammogram Neck pain Chest pain Pruritus ani Annual physical exam Normal Pap smear Asymptomatic microscopic hematuria Hyperlipidemia Hypothyroid GERD (gastroesophageal reflux disease) Surgical History H/O colonoscopy History of esophagogastroduodenoscopy (EGD) Family History Father No problems noted. Mother COPD (chronic obstructive pulmonary disease) HTN (hypertension) Social History Housing: House Alcohol intake: current Alcohol intake frequency: a few times a month Patient Tobacco Use Status: Former Tobacco user Tobacco use type: Cigarette e-Cigarette/Vaping Use: Never Used Current occupational status: employed Cognitive needs: No Hearing needs: No Vision needs: Yes Questionnaire Thrive Questionnaire Date Thrive assessed: 11/11/23 AUDIT C Alcohol Use Questionnaire (AUDIT-C) 1. How often do you have a drink containing alcohol?: Never Total Score: 0 CRISTINA-7 AMB Questionnaire CRISTINA-7 Date CRISTINA - 7 assessed: 11/11/23 Source: Developed by Drs. Brandon Lanza, Mary Baig, Sergo Aquino and colleagues, with an educational orlando from [employer]. Review of Systems Const All systems reviewed & are unremarkable except as noted in HPI and below Reports no additional complaints Eyes Reports no additional complaints ENT Reports no additional complaints Card Reports no additional complaints Resp Reports no additional complaints GI Reports no additional complaints Reports no additional complaints Physical exam (Primary Care) Vital Signs: Last Vital Signs Pulse 64 01/23/24 12:54 BP 130/78 01/23/24 12:54 Pulse Ox 99 01/23/24 12:54 Oxygen Delivery Method Room Air 01/23/24 12:54 BMI result Body Mass Index 25.8 Tobacco/Smoking Status: Tobacco use Status Tobacco use date assessed 01/23/24 01/23/24 12:58 Patient Tobacco Use Status Former Tobacco user 01/23/24 12:58 Tobacco use type Cigarette 01/23/24 12:58 e-Cigarette/Vaping Use Never Used 01/23/24 12:58 Thrive Assessment: Date of Thrive Assessment Date Thrive assessed 11/11/23 01/23/24 12:58 Const General: no acute distress HENMT Other: Multiple ecchymoses and abrasion of left forehead, temporal, and periorbital region, soft tissue swelling of nose and tenderness to palpation Ears: hearing grossly normal bilaterally Face and sinus: Yes normal facial exam Mouth: Normal oral and palatal mucosa present Eyes General: appearance normal, both eyes and all related structures Neck Neck: Yes no lymphadenopathy and Yes supple Resp Effort & Inspection: normal respiratory effort Auscultation: clear to auscultation bilaterally Cardio Rhythm: regular rhythm Heart sounds: S1 normal heart sound present and S2 normal heart sound present GI Inspection: Yes normal to inspection Palpation (GI): Soft to palpation Percussion: Yes normal to percussion Auscultation: normal bowel sounds Assessment and Plan Assessment & Plan (1) Dysplastic nevi: Code(s): D23.9 - Other benign neoplasm of skin, unspecified Plan: Referred to dermatology (2) Smoker: Comment: 1 PPD x 20 yrs, quit 2019 Code(s): F17.200 - Nicotine dependence, unspecified, uncomplicated Plan: Referred to lung cancer screening program (3) Hypothyroid: Code(s): E03.9 - Hypothyroidism, unspecified Plan: Continue Levothroxine (4) Blunt trauma of face: Code(s): S09.93XA - Unspecified injury of face, initial encounter Plan: Check CT of the face and brain after trauma (5) Head trauma: Code(s): S09.90XA - Unspecified injury of head, initial encounter (6) Annual physical exam: Code(s): Z00.00 - Encounter for general adult medical examination without abnormal findings Plan: Well-balanced diet regular physical activity discussed with the patient she is up-to-date with mammogram colonoscopy. Fall prevention discussed with the patient Orders: Orders TSH reflex Free T4 2 Months E03.9 - Hypothyroidism, unspecified CT head/brain wo IV con Today S09.90XA - Unspecified injury of head, initial encounter, S09.93XA - Unspecified injury of face, initial encounter CT facial bones wo IV con Today S09.90XA - Unspecified injury of head, initial encounter, S09.93XA - Unspecified injury of face, initial encounter Referrals Dermatology Referral D23.9 - Other benign neoplasm of skin, unspecified Thoracic Surgery Referral F17.200 - Nicotine dependence, unspecified, uncomplicated Coding Level of Care Code Est Pt Prev Care >65y(44654) Diagnoses Dysplastic nevi D23.9 Smoker F17.200 Hypothyroid E03.9 Blunt trauma of face S09.93XA Head trauma S09.90XA Annual physical exam Z00.00
== END 2024-01-23 15:34 | disposition home or self-care (01) ==
PROVIDERS: Visit Provider Internal Medicine
DX: D23.9 Other benign neoplasm of skin, unspecified (principal); F17.200 Nicotine dependence, unspecified, uncomplicated; E03.9 Hypothyroidism, unspecified; S09.93XA Unspecified injury of face, initial encounter; S09.90XA Unspecified injury of head, initial encounter; Z00.00 Encounter for general adult medical examination without abnormal findings
CPT/HCPCS: 99397

== ENCOUNTER 2024-01-23 15:50 | Outpatient (REF) | payer MEDICARE, SELFPAY ==
--- NOTE | ~2024-01-23 | CT_ITS ---
EXAMINATION: CT HEAD W/O IV CONTRAST CT FACIAL BONES WITHOUT IV CONTRAST CLINICAL INFORMATION: Injury of head and face. COMPARISON: None TECHNIQUE: Head - Contiguous axial imaging of the head was performed from the skull base to the vertex without the administration of intravenous contrast, and axial images are reconstructed at 2 mm and 5 mm slice thickness. Facial bones - Volumetric, helical CT acquisition of facial bones obtained without contrast; in addition to the standard set of axial images, multiplanar reformatted images were provided in the coronal and sagittal imaging planes. This CT examination was performed using dose optimization techniques as appropriate, variously including the following: *Automated exposure control *Adjustment of mA and/or kV according to patient size (this includes techniques or standardized protocols for targeted exams where dose is matched to indication/reason for exam; i.e. extremities or head) *Use of iterative reconstruction technique DLP: 995 mGy-cm (total) FINDINGS: HEAD: No evidence of intracranial hemorrhage, major vascular territory infarction, focal mass effect or midline shift. Reynolds to white matter differentiation is preserved. The sulci and basilar cisterns are unremarkable. The ventricles have normal size and configuration. No hydrocephalus or extra-axial fluid collections. The calvarium is intact and the mastoid air cells and middle ear cavities are clear. A small hyperdense left frontal scalp hematoma measures up to 0.7 cm AP. This involves the supraorbital region of the face. However, the underlying orbit is intact. FACIAL BONES: The globes and orbital jara, including lamina papyracea, are intact. The orbital apex, optic canals, and retrobulbar fat planes are normal. The maxilla, mandible and temporomandibular joints are intact. Nasal bones, pterygoid plates and zygomatic arches are intact. Small amount mucus is seen at the floor of each maxillary sinus, and there is mild mucosal thickening at the ostium of the left maxillary sinus. Otherwise, the paranasal sinuses are well-aerated and the ostiomeatal units are patent. No air-fluid levels within the paranasal sinuses. There is posttraumatic subcutaneous tissue edema in the left maxillary and orbital region of the face. CT/CT facial bones wo IV con IMPRESSION: * No intracranial hemorrhage or other acute intracranial pathology. * No evidence of acute maxillofacial bone injury. * Soft tissue edema of the left face, and hyperdense hematoma in the left supraorbital region. However, no orbital fracture.
== END 2024-01-23 15:51 | disposition home or self-care (01) ==
LOC: HO.CT 15:50
PROVIDERS: PCP Internal Medicine; Visit Provider Internal Medicine
DX: S09.90XA Unspecified injury of head, initial encounter (principal); S09.93XA Unspecified injury of face, initial encounter; X58.XXXA Exposure to other specified factors, initial encounter; Y93.9 Activity, unspecified; Y92.9 Unspecified place or not applicable; Y99.9 Unspecified external cause status
CPT/HCPCS: 70450; 70486

== ENCOUNTER 2024-04-03 08:05 | Outpatient (AMB) | payer MEDICARE, SELFPAY ==
[2024-04-03 08:09] VITALS: BP 110/78; PULSE 86; TEMP 36.6; O2SAT 98; BMI 26.1
--- NOTE | 2024-04-03 08:09 | AM.OFFWIN_ITS ---
Intake Vital Signs 04/03/24 08:09 Height 5 ft 8 in Weight 172 lb BMI 26.1 BP 110/78 Blood Pressure Location Lt brachial Position Sitting Pulse 86 Pulse Source Pulse Oximeter Temp 97.9 F Temp Source Oral Pulse Oximetry (%) 98 Oxygen Delivery Method Room Air Intake Visit Reasons: EP weak, high bp, feet are cold Intake Note: pt is here for concern of high bp readings and feeling weak with cold feet Patient Tobacco Use Status: Former Tobacco user Allergies atorvastatin Adverse Reaction (Intermediate, Verified 04/03/24 08:09) joint aches Do you need a note to return to daycare/school/sports/work: No HPI HPI Comments History of Present Illness Details Patient is a 69-year-old female complaining of bilateral foot weakness, painful numbness and tingling x3 days. She also states her feet are cold and she is concerned her blood pressure is high, she checked it at home and it was 138 systolic. She states it is difficult for her to sleep at night due to the pain in her feet. She denies any history of diabetes or previous chemotherapies. [facility] Medical History (Updated 04/03/24 @ 08:39 by Alla Su PA-C) Hypothyroid Hyperlipidemia GERD (gastroesophageal reflux disease) Tubular adenoma Internal hemorrhoid Personal history of nicotine dependence Asymptomatic microscopic hematuria Postmenopausal Chest pain Neck pain Normal Pap smear Hx of mammogram Surgical History (Updated 04/02/24 @ 15:45 by Melba Jackson PA-C) History of hysteroscopy History of colonoscopy History of esophagogastroduodenoscopy (EGD) Family History Father No problems noted. Mother COPD (chronic obstructive pulmonary disease) HTN (hypertension) Social History Housing: House Alcohol intake: current Alcohol intake frequency: a few times a month Patient Tobacco Use Status: Former Tobacco user Tobacco use type: Cigarette e-Cigarette/Vaping Use: Never Used Current occupational status: employed Cognitive needs: No Hearing needs: No Vision needs: Yes Review of Systems Const All systems reviewed & are unremarkable except as noted in HPI and below Physical Exam Vital Signs: Last Vital Signs Temp 97.9 F 04/03/24 08:09 Pulse 86 04/03/24 08:09 BP 110/78 04/03/24 08:09 Pulse Ox 98 04/03/24 08:09 Oxygen Delivery Method Room Air 04/03/24 08:09 BMI result Body Mass Index 26.1 Const General: cooperative, healthy appearing, comfortable, no acute distress and well developed Orientation/consciousness: patient oriented x3 Limitations: no limitations HEENT Head: Yes normal to inspection Eyes General: appearance normal, both eyes and all related structures Neck Neck: Yes normal visual inspection and Yes full ROM Resp Effort & Inspection: normal respiratory effort and able to speak in complete sentences Skin General skin exam: no rashes or lesions noted Neuro General: patient oriented x3 Extrem Right lower extremity: normal to inspection, full ROM, normal capillary refill and foot (5/5 strength, sensation intact, warm and well perfused) Details: vascular exam; no cyanosis, no edema and joint enlargement noted Left lower extremity: normal to inspection, full ROM, normal capillary refill and foot (5/5 strength, sensation intact, warm and well perfused); no cyanosis, no edema and joint enlargement noted Results Reviewed Results Reviewed: TSH in December was a little bit low, patient stated she was going to repeat this test but I do not see that a repeat was done yet. Assessment & Plan Assessment & Plan (1) Neuropathy of both feet: Code(s): G57.93 - Unspecified mononeuropathy of bilateral lower limbs Plan: Recommended trying gabapentin at night, advised I would write it for 3 times a day if she needs it to manage her pain until she can see her primary care doctor. Recommended repeating thyroid labs, and further workup with primary care doctor. BP in office today was WNL, but recommended to lower her salt i ntake and not eat canned soups and other items with high salt as she is noticing her blood pressure is elevated a little bit at home. Plan see above Medications: New gabapentin 300 mg PO TID 30 caps 0RF Coding Level of Care Code Est Pt Level 3 (92296) Diagnoses Neuropathy of both feet G57.93
== END 2024-04-03 08:43 | disposition home or self-care (01) ==
PROVIDERS: PCP Internal Medicine; Visit Provider Physician Assistant
DX: G57.93 Unspecified mononeuropathy of bilateral lower limbs (principal)
CPT/HCPCS: 99213

== ENCOUNTER 2024-04-07 07:18 | Outpatient (REF) | payer MEDICARE, SELFPAY ==
[2024-04-07 11:38] LABS: TSH reflex Free T4 0.16 uIU/mL (0.32-4.0)
[2024-04-07 13:46] LABS: Free T4 (Free Thyroxine) 1.12 ng/dL (0.71-1.85)
== END 2024-04-07 07:19 | disposition home or self-care (01) ==
LOC: HO.HMGCLDS 07:18
PROVIDERS: PCP Internal Medicine; Visit Provider Internal Medicine
DX: E03.9 Hypothyroidism, unspecified (principal)
CPT/HCPCS: 36415; 84439; 84443

== ENCOUNTER 2024-05-11 09:35 | Outpatient (AMB) | payer MEDICARE, SELFPAY ==
--- NOTE | 2024-05-11 07:47 | A.OFFVIS_ITS ---
Intake Visit Reasons: Former Smoker Allergies atorvastatin Adverse Reaction (Intermediate, Verified 04/03/24 08:09) joint aches HPI HPI Former Smoker: Details: Initial visit for this 69yo former smoker with a 30+PYH. Patient started smoking at age 19yo for 35 years at 1ppd. She did smoke off and on she feels totalling about 35years. She quit in 2019. . Denies marijuana use. Denies second hand smoke exposure. Denies exposure to chemicals or substances like asbestos. . Denies known family history of lung cancer in immediate. (maternal uncle did) Denies personal history of cancers. Denies chest CT in last year. . Denies recent travel outside the [place]. Denies recent respiratory illness or recent hospitalization for respiratory issues. Reports testing positive for COVID. Admits receiving COVID Vaccine. x3. . Denies fever, chills, new/worsening cough, hemoptysis, hoarseness or dysphagia. Denies significant chest pain, significant dyspnea or unintentional weight loss. Patient Lung Cancer Screening Questionnaire reviewed with patient by provider. . Shared Decision Making Completed. Patient meets criteria. Discussed in detail with patient, the risk vs benefit of LDCT screening. Patient consents to proceed with scan. Discussed and encouraged continued smoking cessation. [facility] Medical History (Updated 05/11/24 @ 09:54 by Melba Jackson PA-C) Diarrhea Hypothyroid Hyperlipidemia GERD (gastroesophageal reflux disease) Tubular adenoma Internal hemorrhoid Personal history of nicotine dependence Asymptomatic microscopic hematuria Postmenopausal Chest pain Neck pain Normal Pap smear Hx of mammogram Surgical History (Updated 04/02/24 @ 15:45 by Melba Jackson PA-C) History of hysteroscopy History of colonoscopy History of esophagogastroduodenoscopy (EGD) Family History (Updated 05/11/24 @ 09:55 by Melba Jackson PA-C) Father No problems noted. Mother COPD (chronic obstructive pulmonary disease) HTN (hypertension) Maternal Uncle Lung cancer Social History (Updated 05/11/24 @ 09:55 by Melba Jackson PA-C) Housing: House Alcohol intake: current Alcohol intake frequency: a few times a month Patient Tobacco Use Status: Former Tobacco user Tobacco use type: Cigarette Years Smoked: (onset 19yo, 1ppd x 35yrs, 30pyh, quit 2019) e-Cigarette/Vaping Use: Never Used Current occupational status: employed Cognitive needs: No Hearing needs: No Vision needs: Yes Assessment & Plan Assessment & Plan (1) Personal history of nicotine dependence: Comment: (onset 19yo, 1ppd x 35yrs, 30pyh, quit 2019) Code(s): Z87.891 - Personal history of nicotine dependence Category: Medical Plan: - SDM visit completed today in office. - Patient meets criteria for LDCT for lung cancer screening purposes and is asymptomatic. - Smoking cessation counseling offered. Patients can always call [phone]. - Will arrange for a LDCT scan of the chest for screening purposes at [facility]. - Risks, benefits, and alternatives were discussed in detail and the patient agrees to proceed. - Risks discussed include but are not limited to: radiation exposure, anxiety during testing and while awaiting results, false negatives, false positives and possibility of additional intervention such as further imaging or surgical procedures for benign disease. - Benefits are obviously detection of lung cancer at an early stage which can lead to improved outcomes. - Discussed the importance of screening program compliance with adherence to yearly LDCT scan as scheduled - or sooner interval scans for personalized screening regimen. - Discussed follow up plan. Our office will send a letter discussing results and if needed set up phone call and office visit based on CT findings. - Patient educated on results categorization and the management decisions for suspicious findings potentially found on the screening LDCT scan. Any patient with a Lung RADS score of 3 or 4 will be reviewed by a multidisciplinary team at [facility] to form a plan of action in regards to scan findings. - If further work up is warranted for a suspicious lung finding this will be followed by the Lung Cancer Screening program in conjunction with the Thoracic Surgery Department at [facility]. - A copy of the office note and LDCT will be sent to the patient's PCP - as well as documentation on any associated further plans of care. - Incidental findings on LDCT are the PCP's responsibility. These findings are indicated with an S finding on the LDCT Assessment. A note discussing the findings will be sent to the PCP who is then responsible for further management. - All questions answered.? Coding Level of Care Code Lung Cancer Screening G0296 Diagnoses Personal history of nicotine dependence Z87.891
== END 2024-05-11 10:16 | disposition home or self-care (01) ==
PROVIDERS: PCP Internal Medicine; Referring Provider Internal Medicine; Visit Provider Physician Assistant Medical
DX: Z87.891 Personal history of nicotine dependence (principal)
CPT/HCPCS: G0296

== ENCOUNTER 2024-05-11 09:49 | Outpatient (REF) | payer MEDICARE, SELFPAY ==
--- NOTE | ~2024-05-11 | CT_ITS ---
EXAMINATION: CT LOW-DOSE SCREENING CHEST WITHOUT CONTRAST CLINICAL INFORMATION: Personal history of nicotine dependence; 41 pack years, quit smoking one year ago, 170 pounds. COMPARISON: No prior. TECHNIQUE: Multidetector volumetric CT imaging of the chest is performed on a Siemens SOMATOM Definition scanner without contrast using low dose technique. Additional 2D coronal and sagittal reformatted images and axial 3D maximum intensity projection (MIP) images are generated on the CT workstation. This CT examination was performed using dose optimization techniques as appropriate, variously including the following: *Automated exposure control *Adjustment of mA and/or kV according to patient size (this includes techniques or standardized protocols for targeted exams where dose is matched to indication/reason for exam; i.e. extremities or head) *Use of iterative reconstruction technique TOTAL EXAM DLP: 49 mGy-cm. Please note, due to [facility] [employer] contractual, systems, and staffing issues, an [facility] radiologist was not available for review and dictation of this case until 06/22/2024. FINDINGS: PULMONARY NODULES: -There are a few scattered 2 to 3 mm calcified granulomata in both lungs. These are benign. -5 mm nodule superior segment right lower lobe (series 5, image 273). -3 mm pleural-based nodule posterolateral right lower lobe (series 5, image 345). -3 mm nodule left upper lobe anteriorly (series 5 image 224). LUNGS: -There are a few foci of endobronchial mucous plugging scattered bilaterally. -There is mild centrilobular emphysema. Lungs otherwise clear. -No pleural effusion, pneumothorax, or pleural mass. -Small airways demonstrate minimal bronchiectasis bilaterally without evidence of bronchial wall thickening. -Trachea and central airways are patent and normal. -Minimal linear right middle lobe scarring. MEDIASTINUM: -There is no abnormal lymphadenopathy. -Aorta is normal in caliber and course. -Main pulmonary artery is normal in size. -Heart size is normal. No pericardial effusion. -Esophagus is normal in caliber and course. Probable tiny type I hiatus hernia at the GE junction. CORONARY ARTERY CALCIFICATION: Mild LAD calcification. THYROID GLAND: Diminutive. CHEST WALL/AXILLA: Unremarkable. UPPER ABDOMEN: -Small subcentimeter liver segment 7 and segment 8 cysts. OSSEOUS STRUCTURES: No suspicious lytic or blastic bone lesion. CT/CT lung screening IMPRESSION: 1. A few scattered tiny pulmonary nodules measuring up to 5 mm in the right lower lobe. Chance of malignancy is less than 1%. 2. Mild emphysema. No active lung disease. Evidence of prior granulomatous disease. 3. No adenopathy. 4. Tiny type I hiatus hernia. 5. Additional ancillary findings as discussed in the body of the report. ASSESSMENT: 1. Lung-RADS Category 2: Benign appearance or behavior of nodules. 2. Lung-RADS Category S: None. RECOMMENDATION: Continued routine annual low-dose CT lung screening in 1 year is recommended. An order for CT CHEST LOW DOSE CANCER SCREENING ([id number]) can be placed. Electronically signed by: Mahendra Cates MD 06/22/2024 09:12 AM EDT
== END 2024-05-11 09:50 | disposition home or self-care (01) ==
LOC: HO.CT 09:49
PROVIDERS: Visit Provider Physician Assistant Medical
DX: Z12.2 Encounter for screening for malignant neoplasm of respiratory organs (principal); Z87.891 Personal history of nicotine dependence
CPT/HCPCS: 71271; G0296

== ENCOUNTER → 2024-05-11 09:52 | Outpatient (BNV) | payer MEDICARE, SELFPAY | PROVIDERS: Visit Provider Radiology Diagnostic Radiology | DX: Z12.2 Encounter for screening for malignant neoplasm of respiratory organs (principal); F17.210 Nicotine dependence, cigarettes, uncomplicated | CPT/HCPCS: 71271 ==

== ENCOUNTER 2024-05-12 11:12 | Outpatient (REF) | payer MEDICARE, SELFPAY ==
[2024-05-12 13:11] LABS: Adenovirus F 40/41 Not Detected (Not Detect.); Astrovirus Not Detected (Not Detect.); Campylobacter Not Detected (Not Detect.); Cryptosporidium Not Detected (Not Detect.); Cyclospora cayetanensis Not Detected (Not Detect.); E. coli EAEC Not Detected (Not Detect.); E. coli EPEC Detected (Not Detect.); E. coli ETEC Not Detected (Not Detect.); E. coli STEC Not Detected (Not Detect.); Entamoeba histolytica Not Detected (Not Detect.); Giardia lamblia Not Detected (Not Detect.); Norovirus GI/GII Not Detected (Not Detect.); Plesiomonas shigelloides Not Detected (Not Detect.); Rotavirus A Not Detected (Not Detect.); Salmonella Not Detected (Not Detect.); Sapovirus Not Detected (Not Detect.); Shigella sp./EIEC Not Detected (Not Detect.); Vibrio Not Detected (Not Detect.); Vibrio Cholerae Not Detected (Not Detect.); Yersinia enterocolitica Not Detected (Not Detect.)
== END 2024-05-12 11:13 | disposition home or self-care (01) ==
LOC: HO.LNP 11:12
PROVIDERS: Visit Provider Internal Medicine
DX: R19.7 Diarrhea, unspecified (principal)
CPT/HCPCS: 87507

== ENCOUNTER 2024-06-27 07:02 | Outpatient (REF) | payer MEDICARE, SELFPAY ==
[2024-06-27 10:44] LABS: TSH reflex Free T4 3.08 uIU/mL (0.32-4.0)
== END 2024-06-27 07:03 | disposition home or self-care (01) ==
LOC: HO.HMGCLDS 07:02
PROVIDERS: PCP Internal Medicine; Visit Provider Nurse Practitioner Family
DX: E03.9 Hypothyroidism, unspecified (principal)
CPT/HCPCS: 36415; 84443

== ENCOUNTER 2024-07-11 12:52 | Outpatient (AMB) | payer MEDICARE, SELFPAY ==
--- NOTE | 2024-07-11 12:53 | MHC.PC.OV ---
Vital Signs 07/11/24 12:54 Height 5 ft 8 in Weight 174 lb BMI 26.5 BP 110/68 Blood Pressure Location Rt brachial Position Sitting Pulse 65 Pulse Source Pulse Oximeter Pulse Oximetry (%) 95 Oxygen Delivery Method Room Air Intake Visit Reasons: Follow up Intake Note: Pt is here today for a follow up visit. Pt states that she still having headaches on the L side since the fall she had 6 months ago. Allergies atorvastatin Adverse Reaction (Intermediate, Verified 04/03/24 08:09) joint aches Medication List - Last Reconciled 07/11/24 by Kristina Buckley MD cholecalciferol (vitamin D3) 50 mcg PO DAILY gabapentin 300 mg PO TID levothyroxine 75 mcg PO DAILY lorazepam 0.5 mg PO BEDTIME PRN omeprazole 20 mg PO DAILY rosuvastatin (Crestor) 5 mg PO DAILY Tobacco use date assessed: 07/11/24 Dental Screening Dental Screen Date: 01/23/24 HPI Follow up HPI Details Pt presents for f/u hyperlipid, hypothyroid, stable on meds. PFSH Medical History Diarrhea Hypothyroid Hyperlipidemia GERD (gastroesophageal reflux disease) Tubular adenoma Internal hemorrhoid Personal history of nicotine dependence Asymptomatic microscopic hematuria Postmenopausal Chest pain Neck pain Normal Pap smear Hx of mammogram Surgical History History of hysteroscopy History of colonoscopy History of esophagogastroduodenoscopy (EGD) Family History Father No problems noted. Mother COPD (chronic obstructive pulmonary disease) HTN (hypertension) Maternal Uncle Lung cancer Social History Housing: House Alcohol intake: current Alcohol intake frequency: a few times a month Patient Tobacco Use Status: Former Tobacco user Tobacco use type: Cigarette Years Smoked: (onset 19yo, 1ppd x 35yrs, 30pyh, quit 2019) e-Cigarette/Vaping Use: Never Used service: No Current occupational status: employed Cognitive needs: No Hearing needs: No Vision needs: Yes Questionnaire PHQ-9 Over the last 2 weeks, how often have you been bothered by any of the following problems? 3. Trouble falling or staying asleep, or sleeping too much: not at all 4. Feeling tired or having little energy: not at all 6. Feeling bad about yourself - or that you are a failure or have let yourself or your family down: not at all 7. Trouble concentrating on things, such as reading the newspaper or watching television: not at all 8. Moving or speaking so slowly that other people could have noticed. Or the opposite - being so fidgety or restless that you have been moving around a lot more than usual: not at all 9. Thoughts that you would be better off or of hurting yourself in some way: not at all Source: Developed by Drs. Brandon Lanza, Mary Baig, Sergo Aquino and colleagues, with an educational orlando from [employer]. Thrive Questionnaire Date Thrive assessed: 11/11/23 I am a: Patient What is your living situation today?: I have a steady place to live Within the past 12 months, did the food you bought not last and you didn't have the money to get more?: I choose not to answer this question Within the past 12 months, did you worry whether your food would run out before you got money to buy more?: I choose not to answer this question Do you have trouble paying for medicines?: No Do you have trouble getting transportation to medical appointments?: No Do you have trouble paying your heating and electricity bill?: No Do you have trouble taking care of your child, family member or friend?: No Do you have trouble with day-to-day activities such as bathing, preparing meals, shopping, managing finances, etc.?: No Are you interested in more education?: No Please select the resources that you would like help with: None Currently or been in a relationship where the following occur: I choose not to answer THRIVE Score: 0 AUDIT C Alcohol Use Questionnaire (AUDIT-C) 1. How often do you have a drink containing alcohol?: 2-4 times a month 2. How many drinks containing alcohol do you have on a typical day when you are drinking?: 1 or 2 3. How often do you have six or more drinks on one occasion?: Never Total Score: 2 CRISTINA-7 AMB Questionnaire CRISTINA-7 Date CRISTINA - 7 assessed: 11/11/23 Feeling nervous, anxious, or on edge: 0 = Not at all Not being able to stop or control worryin = Not at all Worrying too much about different things: 0 = Not at all Trouble relaxin = Not at all Being so restless that it is hard to sit still: 0 = Not at all Becoming easily annoyed or irritable: 0 = Not at all Feeling afraid as if something awful might happen: 0 = Not at all Total CRISTINA-7 score (0-4 normal; 5-9 mild; 10-14 moderate; 15-21 severe): 0 Source: Developed by Drs. Brandon Lanza, Mary Baig, Sergo Aquino and colleagues, with an educational orlando from [employer]. Review of Systems Const All systems reviewed & are unremarkable except as noted in HPI and below Reports no additional complaints Eyes Reports no additional complaints ENT Reports no additional complaints Card Reports no additional complaints Resp Reports no additional complaints GI Reports no additional complaints Reports no additional complaints Physical exam (Primary Care) Vital Signs: Last Vital Signs Pulse 65 07/11/24 12:54 BP 110/68 07/11/24 12:54 Pulse Ox 95 07/11/24 12:54 Oxygen Delivery Method Room Air 07/11/24 12:54 BMI result Body Mass Index 26.5 Tobacco/Smoking Status: Tobacco use Status Tobacco use date assessed 07/11/24 07/11/24 12:58 Patient Tobacco Use Status Former Tobacco user 07/11/24 12:58 Tobacco use type Cigarette 07/11/24 12:58 e-Cigarette/Vaping Use Never Used 07/11/24 12:58 Thrive Assessment: Date of Thrive Assessment Date Thrive assessed 11/11/23 07/11/24 12:58 Currently or been in a relationship where the following occur: I choose not to answer Const General: no acute distress HENMT Head: Yes normal to inspection General nose exam: Normal external nose present Neck Neck: Yes no lymphadenopathy and Yes supple Resp Effort & Inspection: normal respiratory effort Auscultation: clear to auscultation bilaterally Cardio Rhythm: regular rhythm Heart sounds: S1 normal heart sound present and S2 normal heart sound present GI Inspection: Yes normal to inspection Palpation (GI): Soft to palpation Percussion: Yes normal to percussion Auscultation: normal bowel sounds Assessment and Plan Assessment & Plan (1) Hyperlipidemia: Comment: Continue statin Code(s): E78.5 - Hyperlipidemia, unspecified Plan: cont Crestor, (2) GERD (gastroesophageal reflux disease): Comment: EGD 10/2021 Code(s): K21.9 - Gastro-esophageal reflux disease without esophagitis Qualifiers: Esophagitis presence: esophagitis presence not specified Qualified Code(s): K21.9 - Gastro-esophageal reflux disease without esophagitis Plan: cont PPI (3) Vitamin D deficiency: Code(s): E55.9 - Vitamin D deficiency, unspecified (4) Hypothyroid: Code(s): E03.9 - Hypothyroidism, unspecified Plan: Continue levothyroxine Orders: Orders Comprehensive [place]. Panel Fast 6 Months E03.9 - Hypothyroidism, unspecified, E78.5 - Hyperlipidemia, unspecified, K21.9 - Gastro-esophageal reflux disease without esophagitis Complete Blood Count Auto Diff 6 Months E03.9 - Hypothyroidism, unspecified, E78.5 - Hyperlipidemia, unspecified, K21.9 - Gastro-esophageal reflux disease without esophagitis Lipid Panel 6 Months E03.9 - Hypothyroidism, unspecified, E78.5 - Hyperlipidemia, unspecified, K21.9 - Gastro-esophageal reflux disease without esophagitis TSH reflex Free T4 6 Months E03.9 - Hypothyroidism, unspecified, E78.5 - Hyperlipidemia, unspecified, K21.9 - Gastro-esophageal reflux disease without esophagitis Vitamin D 25-OH Total 6 Months E03.9 - Hypothyroidism, unspecified, E78.5 - Hyperlipidemia, unspecified, K21.9 - Gastro-esophageal reflux disease without esophagitis Coding Level of Care Code Est Pt Level 4 (83967) Diagnoses Hyperlipidemia E78.5 Gastroesophageal reflux disease, unspecified whether esophagitis present K21.9 Esophagitis presence: esophagitis presence not specified Vitamin D deficiency E55.9 Hypothyroid E03.9
[2024-07-11 12:54] VITALS: BP 110/68; PULSE 65; O2SAT 95; BMI 26.5
== END 2024-07-11 14:07 | disposition home or self-care (01) ==
PROVIDERS: PCP Internal Medicine; Visit Provider Internal Medicine
DX: E78.5 Hyperlipidemia, unspecified (principal); K21.9 Gastro-esophageal reflux disease without esophagitis; E55.9 Vitamin D deficiency, unspecified; E03.9 Hypothyroidism, unspecified

== ENCOUNTER → 2024-07-11 12:52 | Outpatient (BNVA) | payer MEDICARE, SELFPAY | PROVIDERS: PCP Internal Medicine; Visit Provider Internal Medicine | DX: E78.5 Hyperlipidemia, unspecified (principal); K21.9 Gastro-esophageal reflux disease without esophagitis; E55.9 Vitamin D deficiency, unspecified; E03.9 Hypothyroidism, unspecified | CPT/HCPCS: 99212 ==

== ENCOUNTER 2024-08-16 14:11 | Outpatient (AMB) | payer MEDICARE, SELFPAY ==
--- NOTE | 2024-08-16 14:14 | MHC.PC.OV ---
Vital Signs 08/16/24 14:15 Height 5 ft 8 in Weight 174 lb BMI 26.5 BP 118/68 Blood Pressure Location Rt brachial Position Sitting Pulse 86 Pulse Source Pulse Oximeter Pulse Oximetry (%) 96 Oxygen Delivery Method Room Air Intake Visit Reasons: L breast pain Allergies atorvastatin Adverse Reaction (Intermediate, Verified 04/03/24 08:09) joint aches Medication List - Last Reconciled 08/16/24 by Kristina Buckley MD cholecalciferol (vitamin D3) 50 mcg PO DAILY gabapentin 300 mg PO TID levothyroxine 75 mcg PO DAILY lorazepam 0.5 mg PO BEDTIME PRN omeprazole 20 mg PO DAILY rosuvastatin (Crestor) 5 mg PO DAILY Tobacco use date assessed: 07/11/24 Dental Screening Dental Screen Date: 01/23/24 HPI L breast pain HPI Details Patient presents complaining of left breast tenderness for 1 week. She denies lumps, nipple discharge, change in the shape of the breast, axillary swelling fever chills or trauma. [facility] Medical History Diarrhea Hypothyroid Hyperlipidemia GERD (gastroesophageal reflux disease) Tubular adenoma Internal hemorrhoid Personal history of nicotine dependence Asymptomatic microscopic hematuria Postmenopausal Chest pain Neck pain Normal Pap smear Hx of mammogram Surgical History History of hysteroscopy History of colonoscopy History of esophagogastroduodenoscopy (EGD) Family History Father No problems noted. Mother COPD (chronic obstructive pulmonary disease) HTN (hypertension) Maternal Uncle Lung cancer Social History Housing: House Alcohol intake: current Alcohol intake frequency: a few times a month Patient Tobacco Use Status: Former Tobacco user Tobacco use type: Cigarette Years Smoked: (onset 19yo, 1ppd x 35yrs, 30pyh, quit 2019) e-Cigarette/Vaping Use: Never Used service: No Current occupational status: employed Cognitive needs: No Hearing needs: No Vision needs: Yes Questionnaire PHQ-9 Over the last 2 weeks, how often have you been bothered by any of the following problems? 2. Feeling down, depressed, or hopeless: not at all 5. Poor appetite or overeating: not at all Source: Developed by Drs. Brandon Lanza, Mary Baig, Sergo Aqunio and colleagues, with an educational orlando from [employer]. Thrive Questionnaire Date Thrive assessed: 07/11/24 I am a: Patient What is your living situation today?: I have a steady place to live Within the past 12 months, did the food you bought not last and you didn't have the money to get more?: I choose not to answer this question Within the past 12 months, did you worry whether your food would run out before you got money to buy more?: I choose not to answer this question Do you have trouble paying for medicines?: No Do you have trouble getting transportation to medical appointments?: No Do you have trouble paying your heating and electricity bill?: No Do you have trouble taking care of your child, family member or friend?: No Do you have trouble with day-to-day activities such as bathing, preparing meals, shopping, managing finances, etc.?: No Are you currently unemployed and looking for a job?: No Are you interested in more education?: No Please select the resources that you would like help with: None Currently or been in a relationship where the following occur: I choose not to answer THRIVE Score: 0 CRISTINA-7 AMB Questionnaire CRISTINA-7 Date CRISTINA - 7 assessed: 11/11/23 Source: Developed by Drs. Brandon Lanza, Sergo Patel and colleagues, with an educational orlando from [employer]. Review of Systems Const All systems reviewed & are unremarkable except as noted in HPI and below ENT Reports no additional complaints Card Reports no additional complaints Resp Reports no additional complaints GI Reports no additional complaints Reports no additional complaints Physical exam (Primary Care) Vital Signs: Last Vital Signs Pulse 86 08/16/24 14:15 BP 118/68 08/16/24 14:15 Pulse Ox 96 08/16/24 14:15 Oxygen Delivery Method Room Air 08/16/24 14:15 BMI result Body Mass Index 26.5 Tobacco/Smoking Status: Tobacco use Status Tobacco use date assessed 07/11/24 08/16/24 14:20 Patient Tobacco Use Status Former Tobacco user 08/16/24 14:20 Tobacco use type Cigarette 08/16/24 14:20 e-Cigarette/Vaping Use Never Used 08/16/24 14:20 Thrive Assessment: Date of Thrive Assessment Date Thrive assessed 07/11/24 08/16/24 14:20 Currently or been in a relationship where the following occur: I choose not to answer Const General: no acute distress HENMT Head: Yes normal to inspection Face and sinus: Yes normal facial exam Throat: Yes posterior oropharynx normal Chest Breast/axilla inspection: normal inspection of the breasts Breast/axilla palpation: normal palpation of the axillae and abnormal palpation of the breast (Left breast 06:00 o'clock tenderness and fullness no distinct mass) Resp Effort & Inspection: normal respiratory effort Auscultation: clear to auscultation bilaterally Cardio Rhythm: regular rhythm Heart sounds: S1 normal heart sound present and S2 normal heart sound present Coding Level of Care Code Est Pt Level 3 (14722) Diagnoses Breast pain, left N64.4 Assessment & Plan Assessment & Plan (1) Breast pain, left: Comment: [facility] Code(s): N64.4 - Mastodynia Category: Medical Plan: Obtain diagnostic mammogram and ultrasound of left breast Orders: Orders MM diagnostic mammo unilat LT Today N64.4 - Mastodynia US breast LT complete Today N64.4 - Mastodynia
[2024-08-16 14:15] VITALS: BP 118/68; PULSE 86; O2SAT 96; BMI 26.5
== END 2024-08-16 14:41 | disposition home or self-care (01) ==
PROVIDERS: PCP Internal Medicine; Visit Provider Internal Medicine
DX: N64.4 Mastodynia (principal)

== ENCOUNTER → 2024-08-16 14:11 | Outpatient (BNVA) | payer MEDICARE, SELFPAY | PROVIDERS: PCP Internal Medicine; Visit Provider Internal Medicine | DX: N64.4 Mastodynia (principal) | CPT/HCPCS: 99212 ==

== ENCOUNTER 2024-10-04 07:34 | Outpatient (REF) | payer MEDICARE, SELFPAY ==
[2024-10-04 10:48] LABS: TSH reflex Free T4 7.19 uIU/mL (0.32-4.0)
[2024-10-04 11:34] LABS: Free T4 (Free Thyroxine) 1.13 ng/dL (0.71-1.85)
== END 2024-10-04 07:35 | disposition home or self-care (01) ==
LOC: HO.HMGCLDS 07:34
PROVIDERS: PCP Internal Medicine; Visit Provider Internal Medicine
DX: E03.9 Hypothyroidism, unspecified (principal)
CPT/HCPCS: 36415; 84439; 84443

== ENCOUNTER 2024-12-17 07:25 | Outpatient (REF) | payer MEDICARE, SELFPAY ==
--- OUTSIDE RECORDS SUMMARY | 2024-12-17 07:27 | XMS_ITS | Clinical Summary ---
Author Organization [facility] Address [address] [place] [address] Care Team Providers Care Exchange Underwriting Consultant Name Role Phone Unavailable Primary Care Provider Unavailabl e Social History Tobacco Use Types Packs/Day Years Used Date Smoking Tobacco: Never Assessed Sex and Gender Information Value Date Recorded Sex Assigned at Not on file Gender Identity Not on file Sexual Orientation Not on file Plan of Treatment Health Maintenance Due Date Last Done Comments Hepatitis C Virus Screening 1955 DTaP/Tdap/Td Vaccines (1 - Tdap) 01/12/1975 Pneumococcal Vaccines 50+ (1 of 1 - PCV) 01/12/2006 Zoster (Shingles) Vaccine (1 of 2) 01/12/2006 COVID-19 Vaccine ( - 2023-2 5 season) 2024 RSV Vaccine 60 years and old er and Patients (1 - 1-dose 75+ series) 01/12/2031 Hepatitis B Vaccines Aged Out No long er eligible based on patient's age to complete this topic
--- OUTSIDE RECORDS SUMMARY | 2024-12-17 07:28 | XMS_ITS | Patient Health Record ---
Author Organization [employer], formerly [facility] Address [address] [place] [address] Care Team Providers Care Data Analysis Manager Name Role Phone Kristina Buckley MD Primary Care Provider Unavaila Lisbeth Everett Unavailable [phone] Reason For Referral No Information Medications Medication SIG (Take, Route, Frequency, Duration) Notes Start Date End Date Status Omeprazole 20 MG TAKE [address] [facility] TWICE A DAY Oral for 90 Active Levothyroxine Sodium 88 MCG TAKE 1 TABLE T BY MOUTH EVERY DAY Oral for 90 Active Atorvastatin Calcium 20 MG TAKE 1 TABLET BY MOUTH EVERY DAY Oral for 90 Active Social History Tobacco Use: Social History Observation Description Date Details (start date - stop date) Former Smoker NA - NA Tobacco Use/Smoking Question Answer Notes Are you a former smoker How long has it been since you last smoked? 1-5 years Alcohol Screen (Audit-C) Question Answer Notes Did you have a drink contain ing alcohol in the past year? Yes How often did you have a dri nk containing alcohol in the past year? 2 to 4 times a month (2 points) How many drinks did you have on a typical day when you were drinking in the past year? 1 or 2 drinks (0 point) Points 2 Interpretation Negative Problems Problem Type SNOMED Code ICD Code Onset Dates Problem Status W/U Status Risk Notes Problem Imaging result abnormal ([id number]) Abnormal findings on diagnostic imaging of other specified body structures (R93.89) Active confirmed Plan Of Treatment Pending Test Test Name Order Date MM Digital Screening Mammogram 3D 2021 Medical (General) History Medical History History ICD Code Hypothyroidism, unspecified E03.9 Gastro-esophageal reflux disease without esophagitis K21.9 Vitiligo L80 Leiomyoma of uterus, unspecified D25.9 Abnormal findings on diagnostic imaging of other specified body structures R93.89 Surgical History Surgery Date(Month/Year) Colonoscopy Hysteroscopy, D/C and Polypectomy 2019 Hospitalization History Reason Date(Month/Year) 3 Vaginal Deliveries
--- OUTSIDE RECORDS SUMMARY | 2024-12-17 07:28 | XMS_ITS | Clinical Summary ---
Author Organization [facility] Address [address] [place] [id number] Care Team Providers Care Payment Rep Name Role Phone Unavailable Primary Care Provider Unavailabl e Social History Tobacco Use Types Packs/Day Years Used Date Smoking Tobacco: Never Assessed Comments Unknown Sex and Gender Information Value Date Recorded Sex Assigned at Not on file Legal Sex Female 7:45 PM EST Gender Identity Not on file Sexual Orientation Not on file Plan of Treatment Health Maintenance Due Date Last Done Comments Breast Cancer Screening 1955 DTaP,Tdap,and Td Vaccines (1 - Tdap) 01/12/1975 Pneumococcal Vaccine: 50+ Ye ars (1 of 1 - PCV) 01/12/2006 Zoster Vaccines (1 of 2) 01/12/2006 COVID-19 Vaccine ( - 2023-2 5 season) 2024 Influenza Vaccine (#1) 2024 RSV Immunization Patients 60 + Years Old (1 - 1-dose 75+ series) 01/12/2031 HIB Vaccines Aged Out No longer eligi ble based on patient's age to complete this topic HPV Vaccines Aged Out No longer eligi ble based on patient's age to complete this topic Hepatitis A Vaccines Aged Out No long er eligible based on patient's age to complete this topic Hepatitis B Vaccines Aged Out No long er eligible based on patient's age to complete this topic IPV Vaccines Aged Out No longer eligi ble based on patient's age to complete this topic MMR Vaccines Aged Out No longer eligi ble based on patient's age to complete this topic Meningococcal ACWY Vaccine Aged Out N o longer eligible based on patient's age to complete this topic Meningococcal B Vacine Aged Out No lo nger eligible based on patient's age to complete this topic RSV Immunization Patients Un brandi 20 months Aged Out No longer eligible b ased on patient's age to complete this topic Varicella Vaccines Aged Out No longer eligible based on patient's age to complete this topic
[2024-12-17 10:27] LABS: MANUAL DIFF FLAG NO
[2024-12-17 10:46] LABS: Basophils Percent Auto 0.5 % (0-2); Eosinophils Absolute Auto 0.3 X10*3/uL (0.0-0.4); Eosinophils Percent Auto 6.5 % (0-4); Hematocrit 39.7 % (37.0-47.0); Hemoglobin 12.8 g/dl (12.0-16.0); Imm Gran Abs Auto 0.01 X10*3/uL (0.00-0.03); Imm Gran Pct Auto 0.2 % (0.0-0.4); Lymphocytes Absolute Auto 1.1 X10*3/uL (1.2-4.9); Lymphocytes Percent Auto 27.4 % (20-40); Mean Corpuscular HGB Conc 32.2 g/dl (31.0-35.0); Mean Corpuscular Hemoglobin 29.4 pg (27.0-33.0); Mean Corpuscular Volume 91.1 fL (80.0-98.0); Mean Platelet Volume 9.6 fL (9.4-12.3); Monocytes Absolute Auto 0.2 X10*3/uL (0.1-1.2); Monocytes Percent Auto 5.6 % (2-11); Neutrophils Absolute Auto 2.5 x10*3/uL (2.0-8.3); Neutrophils Percent Auto 59.8 % (45-73); Platelet Count 225 X10*3/uL (160-400); Red Blood Count 4.36 X10*6/uL (4.20-5.50); Red Cell Distribution Width 12.9 % (11.0-16.0); White Blood Count 4.1 X10*3/uL (4.8-10.8)
[2024-12-17 11:30] LABS: TSH reflex Free T4 2.42 uIU/mL (0.32-4.0); Vitamin D 25-OH Total 37.6 ng/mL (>30)
[2024-12-17 11:34] LABS: Anion Gap 11 (12-20)
[2024-12-17 11:39] LABS: Alanine Aminotransferase 18 U/L (0-31); Albumin Level 3.8 g/dL (3.5-5.0); Alkaline Phosphatase 49 U/L (39-117); Aspartate Amino Transferase 23 U/L (5-31); Bilirubin Total 0.4 mg/dL (0.0-1.0); Blood Urea Nitrogen 14 mg/dL (9-16); Calcium 8.9 mg/dL (8.4-10.2); Carbon Dioxide 25 mmol/L (22-29); Chloride 111 mmol/L (96-108); Cholesterol 172 mg/dL (<200); Estimated Glomerular Filt Rate > 60; Glucose Fasting 110 mg/dL (60-99); HDL Cholesterol 52 mg/dL (>40); LDL Cholesterol Calculated 98 mg/dL (<100); Sodium 143 mmol/L (135-145); Total Protein 6.2 g/dL (6.5-8.0); Triglycerides 112 mg/dL (<150)
== END 2024-12-17 07:26 | disposition home or self-care (01) ==
LOC: HO.HMGCLDS 07:25
PROVIDERS: PCP Internal Medicine; Visit Provider Internal Medicine
DX: E78.5 Hyperlipidemia, unspecified (principal); E03.9 Hypothyroidism, unspecified; K21.9 Gastro-esophageal reflux disease without esophagitis
CPT/HCPCS: 36415; 80053; 80061; 82306; 84443; 84481; 85025

== ENCOUNTER 2025-01-24 09:38 | Outpatient (AMB) | payer MEDICARE, SELFPAY ==
[2025-01-24 09:42] VITALS: BP 112/76; PULSE 76; RESP 18; TEMP 36.7; O2SAT 96; BMI 26.5
--- NOTE | 2025-01-24 09:42 | MHC.PC.OV ---
Vital Signs 01/24/25 09:42 Height 5 ft 8 in Weight 174 lb BMI 26.5 BP 112/76 Blood Pressure Location Rt brachial Position Sitting Respiration 18 Pulse 76 Pulse Source Pulse Oximeter Temp 98.1 F Temp Source Oral Pulse Oximetry (%) 96 Oxygen Delivery Method Room Air Intake Visit Reasons: PE - see comments Intake Note: Pt is here today for PE. Allergies atorvastatin Adverse Reaction (Intermediate, Verified 01/24/25 09:42) joint aches Medication List - Last Reconciled 01/24/25 by Kristina Buckley MD cholecalciferol (vitamin D3) 50 mcg PO DAILY gabapentin 300 mg PO TID ketoconazole 2% 1 appl topical DAILY levothyroxine 1 1/2 tabl one day a week, 1 tabl qd the rest of the week orally lorazepam 0.5 mg PO BEDTIME PRN omeprazole 20 mg PO BID rosuvastatin (Crestor) 5 mg PO DAILY triamcinolone acetonide 0.025% 1 appl topical DAILY Tobacco use date assessed: 01/24/25 Fall risk assessment: No Falls in past year Last assessed Fall Risk: 01/24/25 Dental Screening Dental Screen Date: 01/24/25 Did you have a dental visit in the last 12 months?: Yes Did you have a dental problem in the last 6 months where you did not have access to dental care?: No Was dental information given to patient?: Patient has dentist HPI PE - see comments HPI Details Patient presents for physical PFSH Medical History Diarrhea Hypothyroid Hyperlipidemia GERD (gastroesophageal reflux disease) Tubular adenoma Internal hemorrhoid Personal history of nicotine dependence Asymptomatic microscopic hematuria Postmenopausal Chest pain Neck pain Normal Pap smear Hx of mammogram Surgical History History of hysteroscopy History of colonoscopy History of esophagogastroduodenoscopy (EGD) Family History Father No problems noted. Mother COPD (chronic obstructive pulmonary disease) HTN (hypertension) Maternal Uncle Lung cancer Social History Housing: House Alcohol intake: current Alcohol intake frequency: a few times a month Patient Tobacco Use Status: Former Tobacco user Tobacco use type: Cigarette Years Smoked: (onset 19yo, 1ppd x 35yrs, 30pyh, quit 2019) e-Cigarette/Vaping Use: Never Used service: No Current occupational status: retired Cognitive needs: No Hearing needs: No Vision needs: Yes Questionnaire PHQ-9 Over the last 2 weeks, how often have you been bothered by any of the following problems? 1. Little interest or pleasure in doing things: not at all 2. Feeling down, depressed, or hopeless: not at all 3. Trouble falling or staying asleep, or sleeping too much: not at all 4. Feeling tired or having little energy: not at all 5. Poor appetite or overeating: not at all 6. Feeling bad about yourself - or that you are a failure or have let yourself or your family down: not at all 7. Trouble concentrating on things, such as reading the newspaper or watching television: not at all 8. Moving or speaking so slowly that other people could have noticed. Or the opposite - being so fidgety or restless that you have been moving around a lot more than usual: not at all 9. Thoughts that you would be better off or of hurting yourself in some way: not at all Total score: 0 Depression Screening Interpretation: Negative Depression Screening Done: Yes 31382 - PHQ-9 Billing: Yes Source: Developed by Drs. Brandon Lanza, Mary Baig, Sergo Aquino and colleagues, with an educational orlando from [employer]. Thrive Questionnaire Date Thrive assessed: 01/24/25 I am a: Patient What is your living situation today?: I have a steady place to live Within the past 12 months, did the food you bought not last and you didn't have the money to get more?: I choose not to answer this question Within the past 12 months, did you worry whether your food would run out before you got money to buy more?: I choose not to answer this question Do you have trouble paying for medicines?: No Do you have trouble getting transportation to medical appointments?: No Do you have trouble paying your heating and electricity bill?: No Do you have trouble taking care of your child, family member or friend?: I choose not to answer this question Do you have trouble with day-to-day activities such as bathing, preparing meals, shopping, managing finances, etc.?: I choose not to answer this question Are you currently unemployed and looking for a job?: No Are you interested in more education?: No Please select the resources that you would like help with: None Currently or been in a relationship where the following occur: I choose not to answer THRIVE Score: 0 AUDIT C Alcohol Use Questionnaire (AUDIT-C) 1. How often do you have a drink containing alcohol?: Monthly or less 2. How many drinks containing alcohol do you have on a typical day when you are drinking?: 1 or 2 3. How often do you have six or more drinks on one occasion?: Never Total Score: 1 CRISTINA-7 AMB Questionnaire CRISTINA-7 Date CRISTINA - 7 assessed: 01/24/25 Feeling nervous, anxious, or on edge: 0 = Not at all Not being able to stop or control worryin = Not at all Worrying too much about different things: 0 = Not at all Trouble relaxin = Not at all Being so restless that it is hard to sit still: 0 = Not at all Becoming easily annoyed or irritable: 0 = Not at all Feeling afraid as if something awful might happen: 0 = Not at all Total CRISTINA-7 score (0-4 normal; 5-9 mild; 10-14 moderate; 15-21 severe): 0 Source: Developed by Drs. Brandon Lanza, Mary Baig, Sergo Aquino and colleagues, with an educational orlando from [employer]. CRISTINA-7 Assessment Billing CRISTINA-7 Assessment Tool: CRISTINA-7 Assessment 33108 Review of Systems Const All systems reviewed & are unremarkable except as noted in HPI and below Reports no additional complaints Eyes Reports no additional complaints ENT Reports no additional complaints Card Reports no additional complaints Resp Reports no additional complaints GI Reports no additional complaints Reports no additional complaints Physical exam (Primary Care) Vital Signs: Last Vital Signs Temp 98.1 F 01/24/25 09:42 Pulse 76 01/24/25 09:42 Resp 18 01/24/25 09:42 BP 112/76 01/24/25 09:42 Pulse Ox 96 01/24/25 09:42 Oxygen Delivery Method Room Air 01/24/25 09:42 BMI result Body Mass Index 26.5 Tobacco/Smoking Status: Tobacco use Status Tobacco use date assessed 01/24/25 01/24/25 09:44 Patient Tobacco Use Status Former Tobacco user 01/24/25 09:44 Tobacco use type Cigarette 01/24/25 09:44 e-Cigarette/Vaping Use Never Used 01/24/25 09:44 PHQ-9: PHQ-9 Score PHQ-9: Total score 0 01/24/25 10:42 Depression Screening Interpretation: Negative Thrive Assessment: Date of Thrive Assessment Date Thrive assessed 01/24/25 01/24/25 09:44 Currently or been in a relationship where the following occur: I choose not to answer Const General: no acute distress HENMT Head: Yes normal to inspection Ears: hearing grossly normal bilaterally Face and sinus: Yes normal facial exam Mouth: Normal oral and palatal mucosa present Eyes General: appearance normal, both eyes and all related structures Neck Neck: Yes no lymphadenopathy and Yes supple Resp Effort & Inspection: normal respiratory effort Auscultation: clear to auscultation bilaterally Cardio Rhythm: regular rhythm Heart sounds: S1 normal heart sound present and S2 normal heart sound present GI Inspection: Yes normal to inspection Palpation (GI): Soft to palpation Percussion: Yes normal to percussion Auscultation: normal bowel sounds Immunizations pneumoc 20-lauren conj-dip cr(PF) 0.5 mL IM syringe Performing Provider: Kristina Buckley MD Performing Location: [facility] Administered by: CLEOPATRA Marvin on 01/24/25 10:56 Dose Route Admin Location Dispensed Lot Number Expiration Date [facility] Group Burner Machine 0.5 mL IM Left Deltoid 0.5 mL [id number] 03/23/26 [employer] VIS Given Date VIS Provided VIS Publication Date 01/24/25 Single Vaccine 21 Eligibility Eligibility Date Funding Source Not [facility] Eligible 01/24/25 Private Coding Level of Care Code Est Pt Prev Care >65y(47523) Diagnoses Tubular adenoma D36.9 Hypothyroid E03.9 Hyperlipidemia E78.5 Vitamin D deficiency E55.9 Annual physical exam Z00.00 Additional Codes CRISTINA-7 Assessment Billing - CRISTINA-7 Assessment Tool: CRISTINA-7 Assessment 66115 ([id number]) PHQ-9 - 76860 - PHQ-9 Billing: Yes ([id number]) Assessment & Plan Assessment & Plan (1) Tubular adenoma: Comment: (TA on 2021 scope - repeat 3yrs) Code(s): D36.9 - Benign neoplasm, unspecified site Category: Medical Plan: Patient is due for repeat colonoscopy this year, referred to GI (2) Hypothyroid: Code(s): E03.9 - Hypothyroidism, unspecified Category: Medical Plan: Continue levothyroxine (3) Hyperlipidemia: Comment: Continue statin Code(s): E78.5 - Hyperlipidemia, unspecified Category: Medical Plan: Continue statin (4) Vitamin D deficiency: Code(s): E55.9 - Vitamin D deficiency, unspecified Category: Medical Plan: Continue vitamin-D supplement (5) Annual physical exam: Code(s): Z00.00 - Encounter for general adult medical examination without abnormal findings Category: Medical Plan: Well-balanced diet regular physical activity discussed with the patient she is up-to-date with the mammogram and DEXA and will be referred to GI for colonoscopy, return in 1 year with a fasting labs before Orders: Orders TSH reflex Free T4 1 Year E03.9 - Hypothyroidism, unspecified, E55.9 - Vitamin D deficiency, unspecified, E78.5 - Hyperlipidemia, unspecified Complete Blood Count Auto Diff 1 Year E03.9 - Hypothyroidism, unspecified, E55.9 - Vitamin D deficiency, unspecified, E78.5 - Hyperlipidemia, unspecified Comprehensive Bureau. Panel Fast 1 Year E03.9 - Hypothyroidism, unspecified, E55.9 - Vitamin D deficiency, unspecified, E78.5 - Hyperlipidemia, unspecified Lipid Panel 1 Year E03.9 - Hypothyroidism, unspecified, E55.9 - Vitamin D deficiency, unspecified, E78.5 - Hyperlipidemia, unspecified Vitamin D 25-OH Total 1 Year E03.9 - Hypothyroidism, unspecified, E55.9 - Vitamin D deficiency, unspecified, E78.5 - Hyperlipidemia, unspecified Referrals Gastroenterology Referral D36.9 - Benign neoplasm, unspecified site Medications: New ketoconazole 2% 1 appl topical DAILY 15 grams 0RF Discontinued gabapentin Discontinued Reason: Doctor's Order 300 mg PO TID 30 caps 0RF
--- OUTSIDE RECORDS SUMMARY | 2025-01-24 10:07 | XMS_ITS | Clinical Summary ---
Author Organization [facility] Address [address] [place] [phone] Care Team Providers Care Acute Care Assistant Name Role Phone Unavailable Primary Care Provider [...] 2024 Influenza Vaccine (#1) 2024 RSV Immunization Adult Patie nts (1 - 1-dose 75+ series) 01/12/2031 HIB [...]
--- OUTSIDE RECORDS SUMMARY | 2025-01-24 10:07 | XMS_ITS | Clinical Summary ---
Author Organization [facility] Address [address] [place] [address] Care Team Providers Care Accountant Bookkeeper Name Role Phone Unavailable Primary Care Provider [...]
== END 2025-01-24 12:02 | disposition home or self-care (01) ==
LOC: HO.HMCC 09:39
PROVIDERS: PCP Internal Medicine; Visit Provider Internal Medicine
DX: D36.9 Benign neoplasm, unspecified site (principal); E03.9 Hypothyroidism, unspecified; E78.5 Hyperlipidemia, unspecified; E55.9 Vitamin D deficiency, unspecified; Z00.00 Encounter for general adult medical examination without abnormal findings; Z23 Encounter for immunization

== ENCOUNTER → 2025-01-24 09:38 | Outpatient (BNVA) | payer MEDICARE, SELFPAY | PROVIDERS: PCP Internal Medicine; Visit Provider Internal Medicine | DX: Z00.00 Encounter for general adult medical examination without abnormal findings (principal); D36.9 Benign neoplasm, unspecified site; E03.9 Hypothyroidism, unspecified; E78.5 Hyperlipidemia, unspecified; E55.9 Vitamin D deficiency, unspecified; Z23 Encounter for immunization; Z87.891 Personal history of nicotine dependence | CPT/HCPCS: 90471; 90677; 96127; 99397 ==

== ENCOUNTER 2025-05-09 10:21 | Outpatient (REF) | payer MEDICARE, SELFPAY ==
--- OUTSIDE RECORDS SUMMARY | 2025-05-09 10:51 | XMS_ITS | Clinical Summary ---
Author Organization [facility] Address [address] [place] [address] Care Team Providers Care Sole Polisher Name Role Phone Unavailable Primary Care Provider Unavailabl e Social History Tobacco Use Types Packs/Day Years Used Date Smoking Tobacco: Never Assessed Comments Unknown Sex and Gender Information Value Date Recorded Sex Assigned at Not on file Legal Sex Female 1:28 PM EST Gender Identity Not on file [...]
--- OUTSIDE RECORDS SUMMARY | 2025-05-09 10:52 | XMS_ITS | Clinical Summary ---
Author Organization [facility] Address [address] [place] [phone] Care Team Providers Care Boom Master Name Role Phone Unavailable Primary Care Provider [...] 2023-2 5 season) 2024 Influenza Vaccine (#1) 2025 RSV Immunization Adult Patie nts (1 - [...] age to complete this topic Meningococcal B Vaccine Aged Out No l onger eligible based on patient's age to complete this topic RSV Immunization Patients Un brandi 20 months Aged Out No longer eligible b ased on patient's age to complete this topic Varicella Vaccines Aged Out No longer eligible based on patient's age to complete this topic
--- OUTSIDE RECORDS SUMMARY | 2025-05-09 10:52 | XMS_ITS | Patient Health Record ---
Author Organization [facility] Address [address] [place] [address] Care Team Providers Care Corporate Legal Assistant Name Role Phone Kristina Buckley MD Primary Care Provider Lisbeth Tabares Unavailable [phone] Reason For Referral No Information Medications Medication SIG (Take, Route, Frequency, Duration) Notes Start Date End Date Status Omeprazole 20 MG TAKE 1 CAPSULE BY [facility] TWICE A DAY Oral; Duration: 90 Active Levothyroxine Sodium 88 MCG TAKE 1 TABLE T BY MOUTH EVERY DAY Oral; Duration: 90 Active Atorvastatin Calcium 20 MG TAKE 1 TABLET BY MOUTH EVERY DAY Oral; Duration: 90 Active Social History Tobacco Use: Social [...] Problem Status W/U Status Risk Notes Problem Abnormal findings on diagnostic imaging of other [...]
[2025-05-09 13:35] LABS: Alanine Aminotransferase 22 U/L (0-31); Albumin Level 4.1 g/dL (3.5-5.0); Alkaline Phosphatase 56 U/L (39-117); Anion Gap 11 (12-20); Aspartate Amino Transferase 28 U/L (5-31); Blood Urea Nitrogen 21 mg/dL (9-16); Calcium 8.8 mg/dL (8.4-10.2); Carbon Dioxide 25 mmol/L (22-29); Chloride 111 mmol/L (96-108); Estimated Glomerular Filt Rate 54; Magnesium 2.1 mg/dL (1.6-2.6); Potassium 3.9 mmol/L (3.3-5.1); Sodium 143 mmol/L (135-145); Total Protein 6.1 g/dL (6.5-8.0)
[2025-05-09 14:01] LABS: Folate 9.3 ng/mL (> or = 4.0); Vitamin B12 391 pg/mL (200-900)
== END 2025-05-09 10:22 | disposition home or self-care (01) ==
LOC: HO.HMGCLDS 10:21
PROVIDERS: PCP Internal Medicine; Visit Provider Internal Medicine
DX: R20.0 Anesthesia of skin (principal); R20.2 Paresthesia of skin; E03.9 Hypothyroidism, unspecified
CPT/HCPCS: 36415; 80053; 82607; 82746; 83735; 84443; 84481

== ENCOUNTER 2025-05-17 10:22 | Outpatient (AMB) | payer MEDICARE, SELFPAY ==
[2025-05-17 10:24] VITALS: BP 120/82; PULSE 86; O2SAT 96; BMI 26.8
--- NOTE | 2025-05-17 10:24 | MHC.OFFVIS ---
Vital Signs 05/17/25 10:24 Height 5 ft 8 in Weight 176 lb BMI 26.8 BP 120/82 Blood Pressure Location Rt brachial Position Sitting Pulse 86 Pulse Source Pulse Oximeter Pulse Oximetry (%) 96 Oxygen Delivery Method Room Air Intake Visit Reasons: Repeat colo screen. Seen by Freya clark. Intake Note: Est/New(>3 years) pt for recall colo screening. [facility] 02/2022 for GERD mgmt. CC; Pt denies any changes or new concerns. PPI still effective. Manager Truck Required: No Accompanied by: Self / Same As Patient Allergies atorvastatin Adverse Reaction (Intermediate, Verified 05/17/25 10:24) joint aches HPI HPI Repeat colo screen. Seen by Freya prev.: Details: LAST VISIT: GERD (gastroesophageal reflux disease) Occasional acid reflux without dyspepsia, dysphagia or odynophagia. Patient can take Pepcid on an as-needed basis at bedtime. Patient can continue omeprazole half an hour before breakfast and half an hour before dinner. Discussed with her the importance of late night snacking. Staying upright for minimum 3 hours after meals. Discussed with patient also continue to avoid dietary triggers. Internal hemorrhoid Patient denies any rectal blood. Denies any blood on the tissue when she wipes. Patient denies any rectal pain or burning. Patient can use Proctosol ointment on as needed basis. Patient will call me if she will have rectal pain, burning or bleeding. Patient reports that she has been feeling well. I will see her in 1 year, sooner on as needed basis. Patient is agreeable to this plan and verbalizes understanding of instructions. She was given the opportunity to ask questions and all questions answered. ? Thank you for allowing me to participate in her care Plan Medications New famotidine (Pepcid) 20 mg PO BEDTIME 90 tabs 2RF K21.9 Refilled methylcellulose (laxative) (Citrucel) take it with full glass of water 500 mg PO DAILY 90 tabs 4RF K59.00 TODAY'S VISIT: Patient is here today to discuss going for colonoscopy. Last colonoscopy in October of 2021. Patient was recommended to return in 3 years. Patient denies any family history of CRC. Denies any difficulty with anesthesia in the past. Negative for history of sleep apnea. Patient is not on any anticoagulation medication. Patient denies any melena, hematochezia, unintentional weight loss or ribbon like stools. Patient is on omeprazole for acid reflux. Patient reports that it helps, however if she forgets to take it for day or 2 patient reports to have epigastric pain and acid reflux. Patient denies dyspepsia, dysphagia or odynophagia. [facility] Medical History Diarrhea Hypothyroid Hyperlipidemia GERD (gastroesophageal reflux disease) Tubular adenoma Internal hemorrhoid Personal history of nicotine dependence Asymptomatic microscopic hematuria Postmenopausal Chest pain Neck pain Normal Pap smear Hx of mammogram Surgical History History of hysteroscopy History of colonoscopy History of esophagogastroduodenoscopy (EGD) Family History Father No problems noted. Mother COPD (chronic obstructive pulmonary disease) HTN (hypertension) Maternal Uncle Lung cancer Social History Housing: House Alcohol intake: current Alcohol intake frequency: a few times a month Patient Tobacco Use Status: Former Tobacco user Tobacco use type: Cigarette Years Smoked: (onset 19yo, 1ppd x 35yrs, 30pyh, quit 2019) e-Cigarette/Vaping Use: Never Used service: No Current occupational status: retired Cognitive needs: No Hearing needs: No Vision needs: Yes Review of Systems Const Denies weight gain and Denies weight loss ENT Reports no additional complaints, Denies dysphagia and Denies odynophagia Card Reports no additional complaints Resp Reports no additional complaints GI Denies abdominal pain, Denies belching, Denies melena, Denies bloating, Denies change in bowel habits, Denies dysphagia, Denies excessive flatus, Denies dyspepsia, Reports heartburn (Occasional), Denies diarrhea, Denies loose stools, Denies nausea, Denies odynophagia and Denies vomiting Musc Reports no additional complaints Neuro Reports no additional complaints Psych Reports no additional complaints Endo Reports no additional complaints Physical Exam Vital Signs: Last Vital Signs Pulse 86 05/17/25 10:24 BP 120/82 05/17/25 10:24 Pulse Ox 96 05/17/25 10:24 Oxygen Delivery Method Room Air 05/17/25 10:24 BMI result Body Mass Index 26.8 Const General: healthy appearing, no acute distress and well developed Nutritional Appearance: well nourished Orientation/consciousness: patient oriented x3 Resp Effort & Inspection: normal respiratory effort, able to speak in complete sentences, no tracheal deviation and symmetric chest movement Auscultation: clear to auscultation bilaterally Cardio Rate: regular rate GI Inspection: Yes normal to inspection and No distended Palpation (GI): Soft to palpation, not firm, nontender and No hepatosplenomegaly present Auscultation: normal bowel sounds General: Yes no CVA tenderness Back/Spine/Pelvis Back: no CVA tenderness Skin General skin exam: elasticity normal, turgor normal and dry skin Neuro General: patient oriented x3 Psych Appearance: grossly normal Mental Status: mental status grossly normal Assessment & Plan Assessment & Plan (1) GERD (gastroesophageal reflux disease): Code(s): K21.9 - Gastro-esophageal reflux disease without esophagitis Category: Medical Qualifiers: Esophagitis presence: esophagitis presence not specified Qualified Code(s): K21.9 - Gastro-esophageal reflux disease without esophagitis (2) Epigastric pain: Code(s): R10.13 - Epigastric pain Category: Medical (3) Screen for colon cancer: Code(s): Z12.11 - Encounter for screening for malignant neoplasm of colon Plan Patient denies any cardiac or respiratory symptoms.? Patient currently is taking PPI. Patient states that if she forgets to take omeprazole she will have acid reflux. She will be sent for upper endoscopy. Denies any issues with anesthesia in the past.? Denies any history of sleep apnea.? No history infectious diseases in the past or present.? Not on any anticoagulation therapy.? No family of colon cancer.? Patient denies melena, hematochezia, unintentional weight loss or ribbon like stools.? Discussed at length the pre-procedure,? prep, diet & medications as well as what to expect prior, during and after the procedure.?? Stressed the importance of good bowel prep.? Recommended the use of Vaseline or Calmoseptine OTC & baby wipes with bowel movements to promote comfort.? ?Patient verbalizes understanding and agrees to plan of care.? She was given the opportunity to ask questions and all questions answered.? We will see her after the procedure.? Medications: New bisacodyl (Dulcolax (bisacodyl)) take 4 tabs at noon the day before your colonoscopy 20 mg (4 x 5 mg) PO ONCE 4 tabs 0RF constipation 1 day Z12.11 - Encounter for screening for malignant neoplasm of colon polyethylene glycol 3350 (Miralax) As directed by gastroenterology department at [facility] 238 grams PO ONCE 238 grams 0RF Z12.11 - Encounter for screening for malignant neoplasm of colon Coding Level of Care Code New Pt Level 3 (12048) Diagnoses Gastroesophageal reflux disease, unspecified whether esophagitis present K21.9 Esophagitis presence: esophagitis presence not specified Epigastric pain R10.13 Screen for colon cancer Z12.11 Time Spent (min) 40 Comment 30 minutes spent with patient and additional 10 minutes spent reviewing her records
--- OUTSIDE RECORDS SUMMARY | 2025-05-17 10:38 | XMS_ITS | Clinical Summary ---
Author Organization [facility] ity Address [address] [place] [address] Care Team Providers Care Food Preparation Supervisor Name Role Phone Unavailable Primary Care Provider [...] Vaccine ( - 2023-2 5 season) 2024 Depression Screening 10/24/2024 Influenza Vaccine (#1) 2025 RSV Immunization Adult [...]
--- OUTSIDE RECORDS SUMMARY | 2025-05-17 10:38 | XMS_ITS | Clinical Summary ---
Author Organization [facility] Address [address] [place] [address] Care Team Providers Care Sample Maker Name Role Phone Unavailable Primary Care Provider [...]
--- OUTSIDE RECORDS SUMMARY | 2025-05-17 10:38 | XMS_ITS | Patient Health Record ---
Author Organization [employer] [facility] Address [address] [place] [address] Care Team Providers Care Furniture Installer Name Role Phone Kristina Buckley MD Primary Care Provider Lisbeth Tabares Unavailable [phone] Reason For Referral No Information Medications Medication SIG (Take, Route, Frequency, Duration) Notes Start Date End Date Status Omeprazole 20 MG TAKE 1 CAPSULE BY [facility] TWICE A DAY Oral; Duration: 90 Active [...] Status Risk Notes Problem Imaging result abnormal ([id number]) Abnormal findings on diagnostic imaging of other [...]
== END 2025-05-17 10:54 | disposition home or self-care (01) ==
LOC: HO.HGI 10:23
PROVIDERS: PCP Internal Medicine; Visit Provider Nurse Practitioner Family
DX: K21.9 Gastro-esophageal reflux disease without esophagitis (principal); R10.13 Epigastric pain
CPT/HCPCS: 99203

== ENCOUNTER → 2025-05-17 10:22 | Outpatient (BNVA) | payer MEDICARE, SELFPAY | PROVIDERS: PCP Internal Medicine; Visit Provider Nurse Practitioner Family | DX: Z12.11 Encounter for screening for malignant neoplasm of colon (principal); K21.9 Gastro-esophageal reflux disease without esophagitis; R10.13 Epigastric pain | CPT/HCPCS: 99202 ==

== ENCOUNTER 2025-06-11 07:37 | Outpatient (REF) | payer MEDICARE, SELFPAY ==
--- NOTE | ~2025-06-11 | CT_ITS ---
CLINICAL HISTORY: Z87.891 - Personal history of nicotine dependence CT lung cancer screening. Technique: Axial CT images of the chest using low-dose technique. Effective radiation dose: DLP 43.1 mGy. Cm, CTDIvol 1.3 mGy Referring provider counseled the patient on shared decision-making for LDCT screening. Additional counseling was provided on smoking cessation. Comparison: 05/11/2024 Findings: No consolidation is seen. There is a small granuloma in the right mid lung. There are areas of mild parenchymal scarring or atelectasis bilaterally. Right lower lobe 6 mm nodule image 85 unchanged. There is a small amount of motion artifact. There is no significant bronchiectasis. There is thyroid atrophy. There is mild coronary artery calcification. Impression: 6 mm right lower lobe nodule unchanged. Recommend continued annual screening. LungRADS 2 - Benign Appearance: Continue annual screening with low dose Chest CT in 12 months. ACR LungRADS Categories Category 1: Normal; continue annual screening Category 2: Benign appearance or behavior, continue annual screening Category 3: Probably Benign, [address] recommended Category 4A: Suspicious, [address] recommended; may consider PET/CT Category 4B: Suspicious, Additional diagnostics and/or tissue sampling recommended Category 4X: Suspicious, Additional diagnostics and/or tissue sampling Category 0: Recalls (incomplete screen due to Incomplete coverage, Noise, Respiratory motion, Expiration, Obscured by acute abnormality) This document has been electronically signed by: Liam Coronado MD on 06/12/2025 19:31:57
--- OUTSIDE RECORDS SUMMARY | 2025-06-11 07:39 | XMS_ITS | Clinical Summary ---
Author Organization [facility] ity Address [address] [place] [address] Care Team Providers Care Pot Runner Name Role Phone Unavailable Primary Care Provider [...]
--- OUTSIDE RECORDS SUMMARY | 2025-06-11 07:39 | XMS_ITS | Clinical Summary ---
Author Organization [facility] Address [address] [place] [address] Care Team Providers Care Mobile Product Manager Name Role Phone Unavailable Primary Care Provider [...]
--- OUTSIDE RECORDS SUMMARY | 2025-06-11 07:39 | XMS_ITS | Patient Health Record ---
[facility] Organization [facility] Address [address] [place] [address] Care Team Providers Care Body Builder Apprentice Name Role Phone Kristina Buckley MD Primary Care Provider Lisbeth Tabares Unavailable [phone] Reason For Referral No Information Medications Medication SIG (Take, Route, Frequency, Duration) Notes Start Date End Date Status Omeprazole 20 MG TAKE 1 CAPSULE BY [facility] TWICE A DAY Oral; Duration: [...]
== END 2025-06-11 07:38 | disposition home or self-care (01) ==
LOC: HO.CT 07:37
PROVIDERS: PCP Internal Medicine; Visit Provider Physician Assistant Medical
DX: Z12.2 Encounter for screening for malignant neoplasm of respiratory organs (principal); Z87.891 Personal history of nicotine dependence
CPT/HCPCS: 71271

== ENCOUNTER → 2025-06-11 07:38 | Outpatient (BNV) | payer MEDICARE, SELFPAY | PROVIDERS: PCP Internal Medicine; Visit Provider Radiology Diagnostic Radiology | DX: Z87.891 Personal history of nicotine dependence (principal) | CPT/HCPCS: 71271 ==

== ENCOUNTER 2025-07-16 14:04 | Outpatient (AMB) | payer MEDICARE, SELFPAY ==
[2025-07-16 14:06] VITALS: BP 110/70; PULSE 82; RESP 18; TEMP 36.6; O2SAT 99; BMI 26.8
--- NOTE | 2025-07-16 14:06 | A.OFFPC_ITS ---
Vital Signs 07/16/25 14:06 Height 5 ft 8 in Weight 176 lb BMI 26.8 BP 110/70 Blood Pressure Location Lt brachial Position Sitting Respiration 18 Pulse 82 Pulse Source Pulse Oximeter Temp 97.8 F Temp Source Oral Pulse Oximetry (%) 99 Oxygen Delivery Method Room Air Intake Visit Reasons: R leg pain Intake Note: Pt is here today for a sick visit. Pt c/o R leg pain. Pt states that she has been having pain in legs and arms. Allergies atorvastatin Adverse Reaction (Intermediate, Verified 05/17/25 10:24) joint aches Medication List - Last Reconciled 07/16/25 by Kristina Buckley MD bisacodyl (Dulcolax (bisacodyl)) 20 mg (4 x 5 mg) PO ONCE 1 day cholecalciferol (vitamin D3) 50 mcg PO DAILY levothyroxine 1 1/2 tabl one day a week, 1 tabl qd the rest of the week orally lorazepam 0.5 mg PO BEDTIME PRN meloxicam 15 mg PO DAILY omeprazole 20 mg PO BID polyethylene glycol 3350 (Miralax) 238 grams PO ONCE rosuvastatin (Crestor) 5 mg PO DAILY Tobacco use date assessed: 07/16/25 Fall risk assessment: No Falls in past year Last assessed Fall Risk: 07/16/25 Dental Screening Dental Screen Date: 01/24/25 HPI R leg pain HPI Details Pt c/o R medial knee pain for 3 days worse when walking. She denies any injury joint swelling or warmth. Patient to ibuprofen twice with some relief. Patient complains of bilateral lower extremities feeling cold and achy worse when walking. She reports intermittent burning sensation in both distal lower extremities on and off. Patient denies any change in the balance a weakness in lower extremities. [facility] Medical History (Updated 07/16/25 @ 15:06 by Kristina Buckley MD) Diarrhea Hypothyroid Hyperlipidemia GERD (gastroesophageal reflux disease) Tubular adenoma Internal hemorrhoid Personal history of nicotine dependence Asymptomatic microscopic hematuria Postmenopausal Chest pain Neck pain Normal Pap smear Hx of mammogram Surgical History History of hysteroscopy History of colonoscopy History of esophagogastroduodenoscopy (EGD) Family History Father No problems noted. Mother COPD (chronic obstructive pulmonary disease) HTN (hypertension) Maternal Uncle Lung cancer Social History Housing: House Alcohol intake: current Alcohol intake frequency: a few times a month Patient Tobacco Use Status: Former Tobacco user Tobacco use type: Cigarette Years Smoked: (onset 19yo, 1ppd x 35yrs, 30pyh, quit 2019) e-Cigarette/Vaping Use: Never Used service: No Current occupational status: retired Cognitive needs: No Hearing needs: No Vision needs: Yes Questionnaire PHQ-9 Over the last 2 weeks, how often have you been bothered by any of the following problems? 1. Little interest or pleasure in doing things: not at all 2. Feeling down, depressed, or hopeless: not at all 3. Trouble falling or staying asleep, or sleeping too much: not at all 4. Feeling tired or having little energy: not at all 5. Poor appetite or overeating: not at all 6. Feeling bad about yourself - or that you are a failure or have let yourself or your family down: not at all 7. Trouble concentrating on things, such as reading the newspaper or watching television: not at all 8. Moving or speaking so slowly that other people could have noticed. Or the opposite - being so fidgety or restless that you have been moving around a lot more than usual: not at all 9. Thoughts that you would be better off or of hurting yourself in some way: not at all Total score: 0 Depression Screening Interpretation: Negative Depression Screening Done: Yes Source: Developed by Drs. Brandon Lanza, Mary Baig, Sergo Aquino and colleagues, with an educational orlando from [employer]. Thrive Questionnaire Date Thrive assessed: 01/24/25 I am a: Patient What is your living situation today?: I have a steady place to live Within the past 12 months, did the food you bought not last and you didn't have the money to get more?: I choose not to answer this question Within the past 12 months, did you worry whether your food would run out before you got money to buy more?: I choose not to answer this question Do you have trouble paying for medicines?: No Do you have trouble getting transportation to medical appointments?: No Do you have trouble paying your heating and electricity bill?: No Do you have trouble taking care of your child, family member or friend?: I choose not to answer this question Do you have trouble with day-to-day activities such as bathing, preparing meals, shopping, managing finances, etc.?: I choose not to answer this question Are you currently unemployed and looking for a job?: No Are you interested in more education?: No Please select the resources that you would like help with: None Currently or been in a relationship where the following occur: I choose not to answer THRIVE Score: 0 CRISTINA-7 AMB Questionnaire CRISTINA-7 Date CRISTINA - 7 assessed: 01/24/25 Feeling nervous, anxious, or on edge: 0 = Not at all Not being able to stop or control worryin = Not at all Worrying too much about different things: 0 = Not at all Trouble relaxin = Not at all Being so restless that it is hard to sit still: 0 = Not at all Becoming easily annoyed or irritable: 0 = Not at all Feeling afraid as if something awful might happen: 0 = Not at all Total CRISTINA-7 score (0-4 normal; 5-9 mild; 10-14 moderate; 15-21 severe): 0 Source: Developed by Drs. Brandon Lanza, Mary Baig, Sergo Aquino and colleagues, with an educational orlando from [employer]. Review of Systems Const All systems reviewed & are unremarkable except as noted in HPI and below Eyes Reports no additional complaints Card Reports no additional complaints Resp Reports no additional complaints GI Reports no additional complaints Reports no additional complaints Physical exam (Primary Care) Vital Signs: Last Vital Signs Temp 97.8 F 07/16/25 14:06 Pulse 82 07/16/25 14:06 Resp 18 07/16/25 14:06 BP 110/70 07/16/25 14:06 Pulse Ox 99 07/16/25 14:06 Oxygen Delivery Method Room Air 07/16/25 14:06 BMI result Body Mass Index 26.8 Tobacco/Smoking Status: Tobacco use Status Tobacco use date assessed 07/16/25 07/16/25 14:14 Patient Tobacco Use Status Former Tobacco user 07/16/25 14:14 Tobacco use type Cigarette 07/16/25 14:14 e-Cigarette/Vaping Use Never Used 07/16/25 14:14 PHQ-9: PHQ-9 Score PHQ-9: Total score 0 07/16/25 14:14 Depression Screening Interpretation: Negative Thrive Assessment: Date of Thrive Assessment Date Thrive assessed 01/24/25 07/16/25 14:14 Currently or been in a relationship where the following occur: I choose not to answer Const General: no acute distress HENMT Head: Yes normal to inspection Throat: Yes posterior oropharynx normal Resp Effort & Inspection: normal respiratory effort Auscultation: clear to auscultation bilaterally Cardio Rhythm: regular rhythm Heart sounds: S1 normal heart sound present and S2 normal heart sound present Extrem Other: There is reproducible tenderness in the medial aspect of right knee there is a slight decreased range of motion crepitus no soft tissue swelling erythema or warmth, pulses are 1+ bilaterally in lower extremities, General: Yes no clubbing, cyanosis or edema Coding Level of Care Code Est Pt Level 4 (89954) Diagnoses Claudication I73.9 Knee pain, right M25.561 Assessment & Plan Assessment & Plan (1) Claudication: Code(s): I73.9 - Peripheral vascular disease, unspecified Category: Medical Plan: For chronic lower extremities pain and claudication obtain arterial ultrasound to evaluate for peripheral vascular disease, patient will try CO Q10 for diffuse body aches while on a statin (2) Knee pain, right: Code(s): M25.561 - Pain in right knee Category: Medical Plan: Check x-ray of right knee meloxicam for 10 days is prescribed if the symptoms persist patient will be referred to physical therapy Orders: Orders US arterial duplex LE BI Today I73.9 - Peripheral vascular disease, unspecified XR knee RT 2V Today M25.561 - Pain in right knee Medications: New meloxicam 15 mg PO DAILY 10 tabs 0RF
--- OUTSIDE RECORDS SUMMARY | 2025-07-16 17:22 | XMS_ITS | Clinical Summary ---
Author Organization [facility] ity Address [address] [place] [address] Care Team Providers Care Director Food Safety Name Role Phone Unavailable Primary Care Provider [...] 01/12/2006 Zoster Vaccines (1 of 2) 01/12/2006 Depression Screening 10/24/2024 COVID-19 Vaccine (1 - 2023-2 5 season) 2025 Influenza Vaccine (#1) 2025 RSV Immunization Adult [...]
--- OUTSIDE RECORDS SUMMARY | 2025-07-16 17:22 | XMS_ITS | Clinical Summary ---
Author Organization [facility] Address [address] [place] [address] Care Team Providers Care Sergeant At Arms Name Role Phone Unavailable Primary Care Provider Unavailabl e Social History Tobacco Use Types Packs/Day Years Used Date Smoking Tobacco: Never Assessed Comments Unknown Sex and Gender Information Value Date Recorded Sex Assigned at Not on file Legal Sex Female 1:28 PM EST Gender Identity Not on file Sexual Orientation Not on file Plan of Treatment Health Maintenance Due Date Last Done Comments Advance Care Planning 1955 Hepatitis C Virus Screening 1955 DTaP/Tdap/Td Vaccines (1 - Tdap) 01/12/1975 Pneumococcal Vaccines 50+ (1 of 1 - PCV) 01/12/2006 Zoster (Shingles) Vaccine (1 of 2) 01/12/2006 COVID-19 Vaccine ( - 2023-2 5 season) 2025 RSV Vaccine 60 years and old er and Patients (1 - 1-dose 75+ series) 01/12/2031 Hepatitis B Vaccines Aged Out No long er eligible based on patient's age to complete this topic
--- OUTSIDE RECORDS SUMMARY | 2025-07-16 17:22 | XMS_ITS | Patient Health Record ---
Author Organization [employer] [facility] Address [address] [place] [address] Care Team Providers Care Vocational Ed Instructor Name Role Phone Kristina Buckley MD Primary Care Provider Lisbeth Tabares Unavailable [phone] Reason For Referral No Information Medications Medication SIG (Take, Route, Frequency, Duration) Notes Start Date End Date Status Omeprazole 20 MG TAKE 1 CAPSULE BY [facility] TWICE A DAY Oral; Duration: 90 Active [...] Status Risk Notes Problem Imaging result abnormal ([id number]) Abnormal findings on diagnostic imaging of other [...]
== END 2025-07-16 15:10 | disposition home or self-care (01) ==
LOC: HO.HMCC 14:05
PROVIDERS: PCP Internal Medicine; Visit Provider Internal Medicine
DX: I73.9 Peripheral vascular disease, unspecified (principal); M25.561 Pain in right knee

== ENCOUNTER 2025-07-16 14:04 | Outpatient (REF) | payer MEDICARE, SELFPAY ==
--- NOTE | ~2025-07-16 | XR_ITS ---
EXAMINATION: XR KNEE, RIGHT CLINICAL INFORMATION: M25.561 - Pain in right knee COMPARISON: None available. TECHNIQUE: AP and lateral views of the right knee. FINDINGS: Mild joint space narrowing involving medial compartment with mild sclerosis along the articular surface of the medial tibial plateau. No acute cortical disruption or malalignment. No suprapatellar bursa joint effusion. No soft tissue calcifications. No lytic or blastic lesions. XR/XR knee RT 2V IMPRESSION: Mild medial compartment osteoarthrosis/osteoarthritis. Electronically signed by: Scott Quintana MD 07/16/2025 03:46 PM EDT
== END 2025-07-16 14:05 | disposition home or self-care (01) ==
LOC: HO.HMGCX 14:04
PROVIDERS: PCP Internal Medicine; Visit Provider Internal Medicine
DX: M25.561 Pain in right knee (principal); I73.9 Peripheral vascular disease, unspecified; Z79.890 Hormone replacement therapy; Z79.899 Other long term (current) drug therapy
CPT/HCPCS: 73560; 99212

== ENCOUNTER → 2025-07-16 14:34 | Outpatient (BNV) | payer MEDICARE, SELFPAY | PROVIDERS: PCP Internal Medicine; Visit Provider Radiology Diagnostic Radiology | DX: M17.11 Unilateral primary osteoarthritis, right knee (principal) | CPT/HCPCS: 73560 ==

== ENCOUNTER 2025-08-30 07:46 | Day surgery (SDC) | payer MEDICARE, SELFPAY ==
--- OUTSIDE RECORDS SUMMARY | 2025-07-23 08:47 | XMS_ITS | Clinical Summary ---
Author Organization [facility] Address [address] [place] [address] Care Team Providers Care Crate Builder Name Role Phone Unavailable Primary Care Provider [...]
--- OUTSIDE RECORDS SUMMARY | 2025-07-23 08:48 | XMS_ITS | Encounter Summary ---
Author Organization [facility] Address [address] [place] [address] Care Team Providers Care Puller Out Name Role Phone Physician, Pcp Unknown Primary Care Provider Tila vailable Encounter Details Date Type Department Care Team (Latest Contact Info) Description 07/17/[address] [facility] - Main Lab 299 [facility] [place] [address] Maria Victoria Valderrama MD 299 [facility] [address] [place] [address] Encounter for gynecological examination (general) (routine) without abnormal findings Social History Tobacco Use Types Packs/Day Years Used Date Smoking Tobacco: Never Assessed Comments Unknown Sex and Gender Information Value Date Recorded Sex Assigned at Not on file Legal Sex Female 7:45 PM EST Gender Identity Not on file Sexual Orientation Not on file documented as of this encounter Plan of Treatment Pending Results Name Type Priority Associated Diagnoses Date /Time Pap smear Pathology and Cytology Routine Encounter for gynecological examination (general) (routine) without abnormal findings 07/16/2025 12:00 AM EDT documented as of this encounter Visit Diagnoses Diagnosis Encounter for gynecological examination (general) (routine) without abnormal findings documented in this encounter Care Teams Puller Out Relationship Specialty Start Date End Date Physician, Pcp Unknown PCP - General 07/17/25 documented as of this encounter
--- OUTSIDE RECORDS SUMMARY | 2025-07-23 08:48 | XMS_ITS | Patient Health Record ---
Author Organization [employer] [facility] Address [address] [place] [address] Care Team Providers Care Transportation Planning Engineer Name Role Phone Kristina Buckley MD Primary Care Provider Lisbeth Tabares Unavailable [phone] Reason For Referral No Information Medications Medication SIG (Take, Route, Frequency, Duration) Notes Start Date End Date Status Omeprazole 20 MG TAKE 1 CAPSULE BY [facility] TWICE A DAY Oral; Duration: [...] Status Risk Notes Problem Imaging result abnormal ([id number]) Abnormal findings on diagnostic imaging of other [...]
--- OUTSIDE RECORDS SUMMARY | 2025-07-23 08:48 | XMS_ITS | Clinical Summary ---
Author Organization 299 [facility] Address [address] [place] [address] Phone Care Team Providers Care Waist Cutter Name Role Phone Physician, Pcp Unknown Primary Care Provider Tila vailable Encounters Date Type Department Care Team Description 07/17/2025 Lab Requisition [facility] - Main Lab 299 [facility] [place] [address] Maria Victoria Valderrama MD Encounter for gynecological examination (general) (routine) without abnormal findings from Last 3 Months Social History Tobacco Use Types Packs/Day Years Used Date Smoking Tobacco: Never Assessed Comments Unknown Sex and Gender Information Value Date Recorded Sex Assigned at Not on file Legal Sex Female 7:45 PM EST Gender Identity Not on file Sexual Orientation Not on file Plan of Treatment Health Maintenance Due Date Last Done Comments Breast Cancer Screening 1955 Colorectal Cancer Screening: Colonoscopy 1955 DTaP,Tdap,and Td Vaccines (1 - Tdap) 01/12/1975 Pneumococcal Vaccine: 50+ Ye ars (1 of 1 - PCV) 01/12/2006 Zoster Vaccines (1 of 2) 01/12/2006 Depression Screening 10/24/2024 COVID-19 Vaccine (1 - 2023-2 5 season) 2025 Influenza Vaccine (#1) 2025 Falls Risk Assessment 07/17/2025 Hepatitis C Screening 07/17/2025 Medicare Annual Wellness Visit 07/17/2025 Osteoporosis Screening (Bone Density Screening) 07/17/2025 Social Influencers of Health Screening 07/17/2025 RSV Immunization Adult Patie nts (1 - [...] on patient's age to complete this topic Insurance [employer] MEDICARE Care Teams Waist Cutter Relationship Specialty Start Date End Date Physician, Pcp Unknown PCP - General 07/17/25
--- NOTE | 2025-08-28 12:02 | P.CONAN_ITS ---
Documented by User: Meron Hayes NP 08/28/25 12:04 HPI - Anesthesia Eval Consult details Narrative: 70yo F for Upper Endoscopy and Colonoscopy [facility] Active Problems Active Problems: All Active Problems Knee pain, right (Acute) Claudication (Acute) Numbness and tingling of both feet (Acute) Breast pain, left (Acute) Neuropathy of both feet (Acute) Hyperlipidemia (Acute) Hypothyroid (Acute) GERD (gastroesophageal reflux disease) (Acute) Personal history of nicotine dependence (Acute) Vitamin D deficiency (Acute) Postmenopausal (Acute) Blunt trauma of face (Acute) Head trauma (Acute) Dysplastic nevi (Acute) Benign positional vertigo (Acute) Diarrhea (Acute) Cough (Acute) Epigastric pain (Acute) Internal hemorrhoid (Acute) Tubular adenoma (Acute) Hx of mammogram (Acute) Neck pain (Acute) Chest pain (Acute) Nephrolithiasis (Acute) Asymptomatic microscopic hematuria (Acute) Past Medical History Medical History Claudication Hypothyroid Hyperlipidemia GERD (gastroesophageal reflux disease) Tubular adenoma Internal hemorrhoid Personal history of nicotine dependence Asymptomatic microscopic hematuria Postmenopausal Family History Family History Father No problems noted. Mother COPD (chronic obstructive pulmonary disease) HTN (hypertension) Maternal Uncle Lung cancer Surgical History Surgical History History of hysteroscopy History of colonoscopy History of esophagogastroduodenoscopy (EGD) History of Problems with Anesthesia: No Social History Social History Housing: House Alcohol intake: current Alcohol intake frequency: a few times a month Patient Tobacco Use Status: Former Tobacco user Tobacco use type: Cigarette Years Smoked: (onset 19yo, 1ppd x 35yrs, 30pyh, quit 2019) e-Cigarette/Vaping Use: Never Used Advance Directives: No Advance Directives Information Provided: Yes service: No Current occupational status: retired Cognitive needs: No Hearing needs: No Vision needs: Yes Meds Allergies Allergy/AdvReac Type Severity Reaction Status Date / Time atorvastatin AdvReac Intermediate joint aches Verified 05/17/25 10:24 Home Medications ?Medication ?Instructions ?Recorded ?Confirmed ?Last Taken ?Type lorazepam 0.5 mg tablet 0.5 mg PO BEDTIME PRN Anxiet y 07/25/20 08/28/25 Unknown History Exam Pertinent Lab Results Pertinent Lab Results: Laboratory Tests 12/17/24 05/09/25 07:30 10:31 WBC 4.1 L Hgb 12.8 Hct 39.7 Plt Count 225 Sodium 143 Potassium 3.9 Chloride 111 H Carbon Dioxide 25 BUN 21 H Creatinine 1.01 Assessment and Plan Assessment Anesthesia Assessment: Chart Reviewed Final Anesthetic Review History of Problems with Anesthesia: No Documented by User: Erna Vieira MD 08/30/25 08:22 PMFSH Past Medical History Medical History Claudication Hypothyroid Hyperlipidemia GERD (gastroesophageal reflux disease) Tubular adenoma Internal hemorrhoid Personal history of nicotine dependence Asymptomatic microscopic hematuria Postmenopausal Family History Family History Father No problems noted. Mother COPD (chronic obstructive pulmonary disease) HTN (hypertension) Maternal Uncle Lung cancer Family history of problems with anesthesia: No Surgical History Surgical History History of hysteroscopy History of colonoscopy History of esophagogastroduodenoscopy (EGD) Social History Social History Housing: House Alcohol intake: current Alcohol intake frequency: a few times a month Patient Tobacco Use Status: Former Tobacco user Tobacco use type: Cigarette Years Smoked: (onset 19yo, 1ppd x 35yrs, 30pyh, quit 2019) e-Cigarette/Vaping Use: Never Used Advance Directives: No Advance Directives Information Provided: Yes service: No Current occupational status: retired Cognitive needs: No Hearing needs: No Vision needs: Yes Meds Allergies Allergy/AdvReac Type Severity Reaction Status Date / Time atorvastatin AdvReac Intermediate joint aches Verified 05/17/25 10:24 Home Medications ?Medication ?Instructions ?Recorded ?Confirmed ?Last Taken ?Type lorazepam 0.5 mg tablet 0.5 mg PO BEDTIME PRN Anxiet y 07/25/20 08/28/25 Unknown History Exam Airway Mallampati Class: III TM Dist: <=3cm Neck ROM: Limited Heart: rrr Lungs: cta Assessment and Plan Assessment Anesthesia Assessment: Anesthesia Plan Discussed Final Anesthetic Review Family History of Problems with Anesthesia: No NPO: Yes ASA Class: II Final Preanesthetic Review: No Changes in Pt Med Stat, Meds/Allgs Chart Reviewed, Consent Obtained/Reviewed and Anes Risks/Benef Reviewed Patient Risk: Low Procedure Risk: Low Anesthetic Plan Anesthetic Plan: MAC: and Agree w/ Assess. and Plan Disposition: Standard PACU
[2025-08-28 12:35] VITALS: BMI 26.8
--- NOTE | 2025-08-30 07:27 | MHC.SHP ---
Pre-Procedural Eval Section A - 24 Hr Update-Section A only Date of Service: 08/30/25 The patient is an INPATIENT: No The patient has been examined within 24 hours of the surgical procedure. The History & Physical has been completed within 30 days and I have reviewed it.: No Section B - Complete if H&P > 30 days Chief Complaint: Surveillance of colon polyps, GERD Relevant Family History (Specify if Yes): No Relevant Social History: Tobacco Use (Former smoker) Present Medications: see Short Stay Collaborative assessment Medical History: Significant History (Diarrhea Hypothyroid Hyperlipidemia GERD (gastroesophageal reflux disease) Tubular adenoma Internal hemorrhoid Personal history of nicotine dependence Asymptomatic microscopic hematuria Postmenopausal Chest pain Neck pain Normal Pap smear Hx of mammogram) History of Previous Operations: Relevant previous surgery/procedure and date(s) (History of hysteroscopy History of colonoscopy History of esophagogastroduodenoscopy (EGD)) Allergies: Allergies Allergy/AdvReac Type Severity Reaction Status Date / Time atorvastatin AdvReac Intermediate joint aches Verified 05/17/25 10:24 Review of Systems Sugical H&P ROS: Negative: Constitution, Cardiovascular, Respiratory and Gastrointestinal Exam Surgical H&P Exam: Normal: Heart, Normal: Lungs, Normal: Extremities and Normal: Abdomen Plan Diagnosis/Plan: Unchanged I have reviewed the history and physical and performed a pertinent physical examination on my patient. No changes have occurred unless specified. Time Spent With Patient Time: Total time managing care of this patient today ____ minutes.
[2025-08-30 08:49] VITALS: BMI 26.1
[2025-08-30] MEDS: Lactated Ringers 1,000 ML 100 ML IVCONT (09:01)
[2025-08-30 09:02] VITALS: BP 117/79; PULSE 69; RESP 16; TEMP 36.2; O2SAT 94
--- NOTE | 2025-08-30 10:54 | HO.OPN-COLON ---
Colonoscopy Operative Note Operative Note Date of Service: 08/30/25 Narrative: FLEXIBLE TRANSORAL UPPER GASTROINTESTINAL ENDOSCOPY WITH BIOPSIES AND COLONOSCOPY TILL CECUM WITH BIOPSIES, SNARE POLYPECTOMY, SUBMUCOSAL INJECTION AND HEMOCLIP PLACEMENT Pre-op diagnosis: Surveillance of colon polyps, GERD Post-op diagnosis: GERD, Gastritis, Colon Polyps, Diverticulosis, hemorrhoids Endoscopist:? Satnam Dumont MD Anesthesia:?MAC UPPER ENDOSCOPY Consent: Indications for the procedure and potential complications of bleeding, perforation, reaction to medications and missed diagnosis were discussed with the patient and informed consent was obtained. Instrument: Olympus GIF H 190 mid size upper endoscope Monitoring: Vital signs and clinical assessment, continuous EKG monitoring, Pulse oximetry, Carbon Dioxide monitoring and blood pressure monitoring were done throughout the procedure. Procedure: The patient was placed in the left lateral decubitis position and pre-procedure medications were administered and a bite block was placed. The endoscope was inserted into the mouth and advanced under direct vision to the third part of duodenum. A careful inspection was made as the upper endoscope was withdrawn including a retroflexed examination of the proximal stomach; Findings and interventions are described below. Findings: Larynx: Normal Esophagus: GE junction at 36 cms. No esophagitis or Hansen's. Stomach: Moderate diffuse gastric erythema - biopsies were obtained from the antrum. Grade 2 flap valve on retroflexed examination of the cardia. Duodenum: Normal bulb and descending duodenum Intervention: Biopsies as noted above COLONOSCOPY PROCEDURE NOTE Instrument: Olympus PCF H 190 L variable stiffness pediatric colonoscope Monitoring: Vital signs and clinical assessment, intermittent blood pressure monitoring, continuous EKG monitoring, Pulse oximetry and Carbon Dioxide monitoring were done throughout the procedure. Please see anesthesia flowsheet. Colon withdrawl time was 23 minutes. Procedure: The patient was placed in the left lateral decubitis position and pre-procedure medications were administered. After a digital rectal examination of the ano-rectum, the video colonoscope was inserted into the rectum and advanced through the colon to the cecum. The colonoscope was slowly withdrawn in a retrograde panoramic fashion and the colon mucosa was carefully examined including a retroflexed view of the rectum. Findings and interventions are described below. Procedure Difficulty: Colon was long and tortuous and there was spasm and some loop formation Findings: Terminal Ileum: Not evaluated Cecum: A 2 x 2 cms flat polyp - raised with 5 cc of [place] and removed with a stiff hot snare. Polypectomy site was closed with 2 hemoclips. A 3-4 mm sessile polyp - removed with a cold snare. Ascending Colon: A 5-6 mm sessile polyp - removed with a hot snare Transverse Colon: A 6-7 mm hyperplastic appearing polyp - removed with a cold biopsy Descending Colon: Normal Sigmoid Colon: Moderate diverticulosis Rectum: Normal Ano-rectum: Moderate internal hemorrhoids Colon preparation: Good after copious irrigation. [place] Bowel Preparation Scale Right colon; 2 Transverse colon: 2 Left colon; 2 (0 = Unprepared colon segment with mucosa not seen due to solid stool that cannot be cleared. 1 = Portion of mucosa of the colon segment seen, but other areas of the colon segment not well seen due to staining, residual stool and/or opaque liquid. 2 = Minor amount of residual staining, small fragments of stool and/or opaque liquid, but mucosa of colon segment seen well. 3 = Entire mucosa of colon segment seen well with no residual staining, small fragments of stool or opaque liquid) Impression and Post Procedure Diagnosis: Endoscopy Findings: ESOPHAGUS: [] STOMACH: [] DUODENUM: [] Colonoscopy Findings: Four small to medium sized polyps were removed Moderate diverticulosis seen in the sigmoid colon Large hemorrhoids on retroflexed exam. Plan: I will send a letter with biopsy results Repeat Colonoscopy in 1 year if cecal polyp is adenomatous - to check polypectomy site. A summary of above findings and relevant handouts were given to the patient.
[2025-08-30 11:35] VITALS: BP 94/57; PULSE 64; RESP 14; TEMP 36.3; O2SAT 97
[2025-08-30 11:50] VITALS: BP 109/69; PULSE 56; RESP 13; TEMP 36.6; O2SAT 99
== END 2025-08-30 12:43 | disposition home or self-care (01) ==
PROVIDERS: PCP Internal Medicine; Visit Provider Internal Medicine Gastroenterology
PROC: (CPT 45380; principal; 2025-08-30 09:20)
DX: Z12.11 Encounter for screening for malignant neoplasm of colon (principal); K21.9 Gastro-esophageal reflux disease without esophagitis; R10.13 Epigastric pain; K64.8 Other hemorrhoids; K29.70 Gastritis, unspecified, without bleeding; K57.30 Diverticulosis of large intestine without perforation or abscess without bleeding; D12.0 Benign neoplasm of cecum; K63.5 Polyp of colon
CPT/HCPCS: 45380; 45385; 45381; 43239; 88305; 88342; J2003; J2704; J3010

== ENCOUNTER 2025-10-08 08:41 | Outpatient (REF) | payer MEDICARE, SELFPAY ==
--- NOTE | ~2025-10-08 | US_ITS ---
EXAMINATION: Noninvasive assessment of the bilateral lower extremities without ARTERIAL DUPLEX, ANKLE BRACHIAL INDICES (ABIs), and PULSE VOLUME RECORDINGS (PVRs). CLINICAL INFORMATION: I 73.9. TECHNIQUE: Duplex Doppler techniques with waveform analysis and measurement of velocities in the bilateral common femoral, profunda femoris, superficial femoral, popliteal and tibial arteries were performed. The study was performed only at rest. COMPARISON: None FINDINGS: DIRECT DUPLEX DOPPLER FINDINGS: RIGHT LEG: Common femoral artery: 110 cm/s, phasicity: Triphasic. Profunda femoris artery: 59 cm/s, phasicity: Triphasic. Superficial femoral artery (proximal): 78 cm/s, phasicity: Triphasic. Superficial femoral artery (mid): 70 cm/s, phasicity: Triphasic. Superficial femoral artery (distal): 72 cm/s, phasicity: Triphasic. Popliteal artery: 53 cm/s, phasicity: Triphasic. Posterior tibial artery: 76 cm/s, phasicity: Triphasic. Peroneal artery: 56 cm/s, phasicity: Triphasic. Anterior tibial artery: 112 cm/s, phasicity: Triphasic. Dorsalis pedis artery: 68 cm/s, phasicity:Triphasic. LEFT LEG: Common femoral artery: 99 cm/s, phasicity: Triphasic. Profunda femoris artery: 59 cm/s, phasicity: Triphasic. Superficial femoral artery (proximal): 71 cm/s, phasicity: Triphasic. Superficial femoral artery (mid): 74 cm/s, phasicity: Triphasic. Superficial femoral artery (distal): 56 cm/s, phasicity: Triphasic. Popliteal artery: 53 cm/s, phasicity: Triphasic. Posterior tibial artery: 69 cm/s, phasicity: Triphasic. Peroneal artery: 61 cm/s, phasicity: Triphasic. Anterior tibial artery: 64 cm/s, phasicity: Triphasic. Dorsalis pedis artery: 59 cm/s, phasicity: Triphasic. US/US arterial duplex LE BI IMPRESSION: Right leg: Normal patency and waveforms throughout the interrogated arteries. Left leg: Normal patency and waveforms throughout the interrogated arteries. Electronically signed by: Scott Quintana MD 10/08/2025 09:49 AM [facility]
--- OUTSIDE RECORDS SUMMARY | 2025-10-08 09:23 | XMS_ITS | Patient Health Record ---
Author Organization [employer] [facility] Address [address] [place] [address] Care Team Providers Care Warehouse Technician Name Role Phone Kristina Buckley MD Primary Care Provider Lisbeth Tabares Unavailable [phone] Reason For Referral No Information Medications Medication SIG (Take, Route, Frequency, Duration) Notes Start Date End Date Status Omeprazole 20 MG TAKE 1 CAPSULE BY [facility] TWICE A DAY Oral; Duration: 90 Active [...] Status Risk Notes Problem Imaging result abnormal ([id number]) Abnormal findings on diagnostic imaging of other [...]
--- OUTSIDE RECORDS SUMMARY | 2025-10-08 09:23 | XMS_ITS | Encounter Summary ---
Author Organization [facility] Address [address] [place] [address] Care Team Providers Care Accounting Manager Cpa Name Role Phone Physician, Pcp Unknown Primary Care Provider Tila vailable Encounter Details Date Type Department Care Team (Latest Contact Info) Description 07/17/2025 Lab Requisition [facility] - Main Lab 299 [facility] [place] [address] Maria Victoria Valderrama MD [address] [address] Encounter for gynecological examination (general) (routine) without abnormal findings Social History Tobacco Use Types Packs/Day Years Used Date Smoking Tobacco: Never Assessed Comments Unknown Sex and Gender Information Value Date Recorded Sex Assigned at Not on file Legal Sex Female 7:45 PM EST Gender Identity Not on file Sexual Orientation Not on file documented as of this encounter Plan of Treatment Not on file documented as of this encounter Procedures Procedure Name Priority Date/Time Associated Diagnosis Comments PAP SMEAR Routine 07/16/2025 12:00 AM EDT Encounter for gynecological examination (general) (routine) without abnormal findings documented in this encounter Results * Pap smear (07/16/2025 12:00 AM EDT) Interpretation Unsatisfactory for evaluation/Unsuc cessful Attempt 08/02/2025 11:48 AM EDT [facility] at 1148 EDT General Categorization Other, see interpretation 08/02/2025 11:48 AM EDT [facility] Specimen Adequacy Inadequate squamous cellularity 08/02/2025 11:48 AM EDT [facility] Pap Methodology Liquid Based Pap Test 08/02/2025 11:48 AM EDT [facility] Disclaimer The Pap test is a screening test which carries an inherent false negative rate. These test results should be correlated with the patient's clinical findings and history. This Pap test was processed using an automated screening system. Technical cytopathology services provided by [facility], at [address] [place] [address] (CLIA # [id number]/Kj Loepz MD, Pop Singer.) 08/02/2025 11:48 AM EDT [facility] Console Pap Interpretation Reported 08/02/2025 11:48 AM T [facility] Brushing/Spatula Cervix uteri structure / Unknown 07/16/2025 07/17/2025 6:33 AM EDT us Maria Victoria Valderrama MD LAB CYTOLOGY ORDERABLES Final Result [facility] [address] [place] [address], documented in this encounter Visit Diagnoses Diagnosis Encounter for gynecological examination (general) (routine) without abnormal findings documented in this encounter Care Teams Accounting Manager Cpa Relationship Specialty Start Date End Date Physician, Pcp Unknown PCP - General 07/17/25 documented as of this encounter
--- OUTSIDE RECORDS SUMMARY | 2025-10-08 09:23 | XMS_ITS | Clinical Summary ---
Author Organization 299 [facility] Address [address] [place] [address] Phone Care Team Providers Care Gas Controller Name Role Phone Physician, Pcp Unknown Primary Care Provider Tila vailable Encounters Date Type Department Care Team Description 07/17/2025 Lab Requisition [facility] - Main Lab 299 [facility] [place] [address] Maria Victoria Valderrama MD Encounter [...] Depression Screening 10/24/2024 COVID-19 Vaccine (1 - 2024-2 6 season) 2025 Influenza Vaccine (#1) 2025 Falls [...] on patient's age to complete this topic Procedures Procedure Name Priority Date/Time Associated Diagnosis Comments PAP SMEAR Routine 07/16/2025 12:00 AM EDT Encounter for gynecological examination (general) (routine) without abnormal findings from Last 3 Months Results * Pap smear (07/16/2025 12:00 AM EDT) Interpretation Unsatisfactory for evaluation/Unsuc cessful Attempt 08/02/2025 11:48 AM EDT [facility] at 1148 EDT General Categorization Other, see interpretation 08/02/2025 11:48 AM [facility] Specimen Adequacy Inadequate squamous cellularity 08/02/2025 11:48 AM EDT [facility] Pap Methodology Liquid Based Pap Test 08/02/2025 11:48 AM [facility] Disclaimer The Pap test is a screening test which carries an inherent false negative rate. These test results should be correlated with the patient's clinical findings and history. This Pap test was processed using an automated screening system. Technical cytopathology services provided by [facility], at [address] [place] [address], [place] [address] (CLIA # [id number]/Kj Lopez MD, Market Researcher.) 08/02/2025 11:48 AM EDT [facility] Console Pap Interpretation Reported 08/02/2025 11:48 AM EDT [facility] ([facility] Brushing/Spatula Cervix uteri structure / Unknown 07/16/2025 07/17/2025 6:33 AM EDT us Maria Victoria Valderrama MD LAB CYTOLOGY ORDERABLES Final Result [facility] [address] [place] [address], from Last 3 Months Insurance [employer] MEDICARE Care Teams Gas Controller Relationship Specialty Start Date End Date Physician, Pcp Unknown PCP - General 07/17/25
--- OUTSIDE RECORDS SUMMARY | 2025-10-08 09:23 | XMS_ITS | Clinical Summary ---
Author Organization [facility] Address [address] [place] [address] Care Team Providers Care Medical Office Manager Name Role Phone Unavailable Primary Care [...] of 2) 01/12/2006 COVID-19 Vaccine ( - 2024-2 6 season) 2025 RSV Vaccine 50 years and old er and Patients (1 - 1-dose 75+ series) 01/12/2031 Hepatitis B Vaccines Aged Out No long er eligible based on patient's age to complete this topic
== END 2025-10-08 08:42 | disposition home or self-care (01) ==
LOC: HO.US 08:41
PROVIDERS: PCP Internal Medicine; Visit Provider Internal Medicine
DX: I73.9 Peripheral vascular disease, unspecified (principal)
CPT/HCPCS: 93925

== ENCOUNTER → 2025-10-08 08:44 | Outpatient (BNV) | payer MEDICARE, SELFPAY | PROVIDERS: PCP Internal Medicine; Visit Provider Radiology Diagnostic Radiology | DX: I73.9 Peripheral vascular disease, unspecified (principal) | CPT/HCPCS: 93925 ==